=== PATIENT | male | born 1955 | race Two or more races ===

== ENCOUNTER 2024-05-25 13:35 | Inpatient (IN) | payer MEDICAID, SELFPAY ==
[2024-05-25] VITALS (11 sets, daily range): BP systolic 122–153; BP diastolic 71–88; PULSE 59–114; RESP 17–95; TEMP 37.2–38.9; O2SAT 92–96; BMI 31.9
--- NOTE | 2024-05-25 14:05 | XR_ITS ---
Examination: AP lateral chest 2 views Technique: Sitting AP lateral chest 2 views Exam date and time: May 25, 2024 at 1419 hrs. Comparison September 24, 2020 Indications: Coughing 3 days, history cavitary lesion left upper lobe on chest Second 2020 Findings: Significant left lung pneumonia Mild right perihilar pneumonia Cavitary lesion left upper lobe is again identified at least 38 mm in dimension Normal heart size Impression: Significant left lung pneumonia with cavitary lesions as above
--- NOTE | 2024-05-25 14:05 | EKG_ITS ---
[facility] Test Date: 2024-05-25 Pat Name: HIMA KAUR Department: Room: - Gender: Male Senior Staff Consultant: : [id number] Requested By: Emiliano Guadalupe Order Number: [id number] Reading MD: Emiliano Guadalupe Measurements Intervals [place] Rate: 106 P: 22 LA: 158 QRS: 32 QRSD: 100 T: 36 QT: 305 QTc: 407 Interpretive Statements SINUS TACHYCARDIA INDETERMINATE AXIS ABNORMAL RHYTHM ECG Compared to ECG 09/24/2020 14:50:48 Indeterminate axis now present Sinus rhythm no longer present /store/S0/[id number].pdf
--- NOTE | 2024-05-25 14:06 | PD.EDRME ---
Rapid Medical Screening Exam RME Arrival date/time: 05/25/24 13:35 68 year old male present to Ed for c/o of cough, fever for 3 days. I have greeted and performed a focused initial assessment of this patient. A comprehensive ED assessment and evaluation of the patient, analysis of all test results, and completion of the medical decision making process will be conducted by additional ED providers. Chief Complaint: Flu Like Symptoms Time Seen by Provider: 05/25/24 13:51 Vital signs: Vital Signs Temperature 102.1 F H 05/25/24 13:59 Pulse Rate 114 H 05/25/24 13:59 Respiratory Rate 20 05/25/24 13:59 Blood Pressure 148/88 H 05/25/24 13:59 Pulse Oximetry (%) 95 05/25/24 13:59 Oxygen Delivery Method Room Air 05/25/24 13:59
[2024-05-25] MEDS: ACETAMINOPHEN 500 MG TABLET 1000 MG PO (14:21)
[2024-05-25 14:35] LABS: Lactate (Lactic Acid) 2.7 mMol/L (0.4-2.0)
[2024-05-25 14:36] LABS: Basophils # (Auto) 0.1 Thou/mm3 (0.0-0.2); Basophils % (Auto) 0 % (0-2.5); Eosinophils % (Auto) 0 % (0-10); Hemoglobin 13.6 g/dL (13.5-16.0); Immature Granulocytes % (Auto) 1 % (0-0); Immature Granulocytes Auto 0.09 Thou/mm3 (0.00-0.00); Lymphocytes # (Auto) 2.1 Thou/mm3 (1.0-4.8); Lymphocytes % (Auto) 13 % (10-50); Mean Corpuscular HGB Conc 33.2 g/dl (31.0-37.0); Mean Corpuscular Hemoglobin 30.3 pg (25.0-35.0); Mean Corpuscular Volume 91 fL (80-100); Monocytes # (Auto) 1.3 Thou/mm3 (0.0-0.8); Monocytes % (Auto) 8 % (0-12); Neutrophils # (Auto) 12.1 Thou/mm3 (1.8-7.7); Neutrophils % (Auto) 77 % (37-80); Nucleated Red Blood Cell % 0 /100 WBC (0); Platelet Count 237 Thou/mm3 (140-440); RDW Standard Deviation 43.8 fL (35.1-43.9); Red Blood Count 4.49 Miln/mm3 (4.50-5.90); White Blood Count 15.7 Thou/mm3 (3.8-10.6)
[2024-05-25 14:52] LABS: B-Type Natriuretic Peptide < 20 pg/mL (0-100)
[2024-05-25 15:02] LABS: Alanine Aminotransferase 33 U/L (10-49); Albumin, Serum 4.5 gm/dL (3.4-4.8); Albumin/Globulin Ratio 1.2 (1.2-2.2); Alkaline Phosphatase 115 U/L (46-116); Anion Gap 10 (7-16); Aspartate Amino Transferase 32 U/L (0-34); BUN/Creatinine Ratio 16 Ratio (12-20); Bilirubin,Total 0.4 mg/dL (0.3-1.2); Blood Urea Nitrogen 19 mg/dL (9-23); Calcium 9.6 mg/dL (8.3-10.6); Calcium (Corrected) 9.6 mg/dL (8.5-10.1); Carbon Dioxide 26.8 mMol/L (20.0-31.0); Chloride 102 mMol/L (98-107); Creatinine (Component) 1.2 mg/dL (0.6-1.3); Estimated Creatinine Clearance 58.9 mL/min (>60); Globulin 3.9 gm/dL (2.3-3.5); Glucose 153 mg/dL (74-106); LDH (Lactate Dehydrogenase) 364 U/L (120-246); Lipase 44 U/L (12-53); Magnesium 1.8 mg/dL (1.6-2.6); Osmolality,Calculated 282 (275-295); Phosphorous 2.4 mg/dL (2.4-5.1); Potassium 4.7 mMol/L (3.4-5.1); Procalcitonin 0.19 ng/ml (0.0-0.49); Sodium 139 mMol/L (136-145); Total Protein 8.4 gm/dL (5.7-8.2); Troponin I < 0.020 ng/mL (0.0-0.045); eGFR > 60 See Note
[2024-05-25 15:19] LABS: INR 1.1 (0.9-1.3); Prothrombin Time 11.9 Seconds (9.0-12.2)
[2024-05-25 15:21] LABS: Collection Type, Urine Clean Catch
[2024-05-25 15:45] LABS: Bilirubin,Urine Negative (Negative); Blood,Urine 2+ (Negative); Clarity,Urine Clear (Clear/Hazy); Color,Urine Lt-Yellow (Lt Yel-Yel); Glucose, Urine Negative (Negative); Ketones,Urine Negative (Negative); Leukocyte Esterase,Urine Negative (Negative); Nitrite,Urine Negative (Negative); Protein,Urine 3+ (Neg - Trace); RBC,Urine 5 /hpf (0-3); Specific Gravity,Urine 1.021 (1.001-1.035); Squamous Epithelial Cell,Urine 1 /hpf (0-5); Urobilinogen,Urine Negative mg/dL (0.0-1.0); WBC,Urine 1 /hpf (0-5)
--- NOTE | 2024-05-25 16:39 | EDNOTE_ITS ---
ED General RME/HPI General Chief complaint: Flu Like Symptoms Stated complaint: COUGHING UP BLOOD TINGED PHLEGM SINCE SUNDAY MN Time Seen by Provider: 05/25/24 13:51 Arrival date/time: 05/25/24 13:35 RME / HPI RME / HPI narrative: 05/25/24 13:35 68 year old male present to Ed for c/o of cough, fever for 3 days. I have greeted and performed a focused initial assessment of this patient. A comprehensive ED assessment and evaluation of the patient, analysis of all test results, and completion of the medical decision making process will be conducted by additional ED providers. DR. RICHMOND MAIN ED EVALUATION: 68 year old male presents to the Emergency Department accompanied by the daughter with complaint of gross hemoptysis, one episode per day for the last 3 days. He states he feels something in his throat and tries to clear it up and it comes out as blood. He states it is at least a handful of bright red blood with some phlegm, maybe more. Symptoms are severe. Associated symptoms include fever of 102 F here and sore throat. 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 Recently, his PCP did somewhat of a physical exam on 05/03/24 and was checking if he still has Valley Fever if not to discontinue treatment, no symptoms at that time. Patient denies any abdominal pain, constipation, black stools, rectal bleeding, or any other symptoms at this time. Last bowel movement was today at like 2 PM, normal yellowish bowels for the patient. Related Data Home Medications ?Medication ?Instructions ?Recorded ?Confirmed folic acid 1 mg tablet 1 mg PO DAILY 08/22/2005/26 cholecalciferol (vitamin D3) 125 125 mcg PO QDAY 08/2409/15/20 mcg (5,000 unit) tablet (Vitamin D3) cyanocobalamin (vitamin B-12) 1,000 mcg PO QDAY 09/15/20 1,000 mcg capsule mirtazapine 30 mg tablet 30 mg PO HS 09/21/20 1 fluconazole 200 mg tablet 200 mg PO Q24H 05/26/2406/17 lisinopril 2.5 mg tablet 2.5 mg PO DAILY 05/26/2406/17 losartan 50 mg-hydrochlorothiazide 1 tab PO DAILY 06/1705/26/24 12.5 mg tablet sitagliptin phosphate 50 1 tab PO BID 05/26/24 mg-metformin 1,000 mg tablet (Lissa) Previous Rx's ?Medication ?Instructions ?Recorded acetaminophen 325 mg/10.15 mL oral 650 mg (20.3 mL) fe eding tube Q6HR 10/05/20 solution PRN Pain Or Fever > 101 #1,0 15 mL bisacodyl 10 mg rectal suppository 10 mg DE QDAY PRN C onstipation #12 10/05/20 ea loratadine 5 mg/5 mL oral solution 10 mg (10 mL) feedi ng tube QDAY 10/05/20 PRN Allergy Symptoms #120 mL Allergies Allergy/AdvReac Type Severity Reaction Status Date / Time No Known Allergies Allergy Verified 05/25/24 13:38 Review of Systems Review of Systems Systems Reviewed: All systems reviewed, normal except as documented Narrative Review of Systems: GEN: + fever, no chills, no weight loss EYES: No discharge, no visual changes, no pain HEENT: No ear pain, no congestion, + sore throat PULM: No shortness of breath, + gross hemoptysis (see HPI) CV: No chest pain, no dyspnea on exertion, no palpitations GI: No nausea, no vomiting, no diarrhea, no pain, no constipation : No frequency, no urgency and no dysuria MUSC/SKEL: No joint pain, no back pain SKIN: No rash PSYCH: No hallucinations, no depression HEME/LYMPH: No easy bleeding or bruising tendencies NEURO: No weakness, no headache Past Medical History Past Medical History NEUROLOGIC: Positive Dementia and Alzheimer's Disease GASTROINTESTINAL: Positive Gastrointestinal Disorders and Hiatal Hernia ENDOCRINE: Positive Diabetes Mellitus Type 2 PSYCHO/SOCIAL: Positive Depression and Anxiety Social History SMOKING STATUS: Former smoker SECOND HAND EXPOSURE: No SUBSTANCE USE: does not use ALCOHOL: Never ED Exam Narrative Physical exam: GENERAL APPEARANCE: AxOx4, generally well-appearing, no acute distress. HEENT: NC, AT. MMM. EOMI, clear conjunctiva, oropharynx clear. NECK: Supple without lymphadenopathy. No stiffness or restricted ROM. HEART: Normal rate and regular rhythm, normal S1/S1, no m/r/g LUNGS: CTAB, moving air well. No crackles or wheezes are heard. ABDOMEN: Soft, nontender, nondistended with good bowel sounds heard. BACK: No midline C/T/L spine pain or deformity, No CVAT, no obvious deformity. EXTREMITIES: Without cyanosis, clubbing or edema. MUSCULOSKELETAL: FROM of all major joints, no chest tenderness NEUROLOGICAL: Grossly nonfocal. Alert and oriented, moving all 4 extremities. CN not formally tested but appear grossly intact. Observed to ambulate with normal gait. Skin: Warm and dry without any rash. Course Course Course Narrative: 1800: Patient was signed out to Dr. Diallo. Past medical, surgical, social and family history reviewed. Vitals and home medications reviewed. Results and treatment plan discussed. They will assume the care of the patient at this time and will follow the patient, pending chest CTA and final disposition. Quality Measures none Orders Category Date Time Status Bedside Influenza A&B Antigen Test NOW Care 05/25/24 14:[address] Screening NOW Care 05/25/24 18:04 Active Pressure Welder STAT Care 05/25/24 14:05 Active Continuous Pulse Oximetry STAT Care 05/25/24 14:05 Completed EKG (ED ONLY) *Do not use* NOW Care 05/25/24 14:05 Completed In and Out Catheter X1PRN Care 05/25/24 14:05 Completed Insert IV NOW Care 05/25/24 14:05 Active NPO STAT Care 05/25/24 14:05 Active Strict Intake and Output Routine Care 05/25/24 14:[address] angio chest Stat Exams 05/25/24 18:04 Completed EKG (ED Only) Stat Exams 05/25/24 14:05 Draft XR chest 2V Stat Exams 05/25/24 14:05 Completed B-Type Natriuretic Peptide Stat Lab 05/25/24 14:20 Completed Blood Culture (Lab) Stat Lab 05/25/24 14:15 Results CBC Stat Lab 05/25/24 14:20 Completed Comprehensive Metabolic Panel Stat Lab 05/25/24 14:20 Completed LDH (Lactate Dehydrogenase) Stat Lab 05/25/24 14:20 Completed Lactate (Lactic Acid) Stat Lab 05/25/24 14:20 Completed Lactic Acid, 3 HR Stat Lab 05/25/24 17:59 Completed Lipase Stat Lab 05/25/24 14:20 Completed Magnesium Stat Lab 05/25/24 14:20 Completed Partial Thromboplastin Time Stat Lab 05/25/24 14:20 Completed Phosphorous Stat Lab 05/25/24 14:20 Completed Procalcitonin Stat Lab 05/25/24 14:20 Completed Prothrombin Time with INR Stat Lab 05/25/24 14:20 Completed Troponin I Stat Lab 05/25/24 14:20 Completed Urinalysis Stat Lab 05/25/24 15:13 Completed Urine Culture Stat Lab 05/25/24 15:13 Received Acetaminophen Tab [Tylenol ES Tab] Med 05/25/24 14:06 Discontinued 1,000 mg PO X1 ONE Cefepime Inj [Maxipime Inj] 1 gm Med 05/25/24 21:03 Discontinued SODIUM CHLORIDE 0.9% (Popper) [Ns 0.9% (P)] 50 ml IV X1 Oxygen Delivery NOW RT 05/25/24 14:05 Active Vital Signs Vital signs: Vital Signs Temperature 102.1 F H 05/25/24 13:59 Pulse Rate 114 H 05/25/24 13:59 Respiratory Rate 20 05/25/24 13:59 Blood Pressure 148/88 H 05/25/24 13:59 Pulse Oximetry (%) 95 05/25/24 13:59 Oxygen Delivery Method Room Air 05/25/24 13:59 Procedures -ED EKG Interpretation #1: Date of EK05/25/24 Time of EK:18 Rate: 106 Interpretation: Interpreted by me Additional EKG comment: sinus tachycardia, rate 106, no STEMI MDM Patient data External records reviewed:: [facility] previous records (Reviewed Gastroenterology note by Dr. Dsouza dated 10/05/20.) Clinical information provided by:: patient and family (daughter) Social determinants that could affect healthcare access:: none Patient has the following chronic illnesses:: Valley Fever diagnosed in 2019. How is presenting disease/condition affected by chronic disease/condition?: e xacerbated by Evaluation data The following diagnostics were reviewed and interpreted by me:: lab results, radiology exam(s) and EKG tracing(s) Lab and/or radiology exams considered but not ordered:: none Interpretation Summary: Pending diagnostic test, signed out to rn night provider. Medications Medications considered but not ordered:: none Medication administrations:: Medication Administration History Acetaminophen (Acetaminophen 325 Mg Tablet) 650 mg PO Q6H PRN PRN Reason: Fever >101.5 Stop: 06/24/24 21:51 Acetaminophen (Acetaminophen 325 Mg Tablet) 650 mg PO Q6H PRN PRN Reason: PAIN SCALE 1-3 (mild Stop: 06/24/24 21:51 Hydrocodone Bitart/Acetaminophen (Hydrocodone/Apap 5/325 Tablet) 1 tab PO Q4HR PRN PRN Reason: PAIN SCALE 4-6 (Moderate Stop: 05/30/24 21:51 Albuterol (Albuterol Rt 2.5 Mg/0.5 Ml Nebu) 2.5 mg INH Q2HR PRN PRN Reason: SHORTNESS OF BREATH OR WHEEZE Stop: 06/24/24 21:51 Dextrose (Dextrose 50%-Water Inj 50 Ml Syringe) 25 ml IV Q15MIN PRN PRN Reason: BG 50-70 responsive npo pt Stop: 06/24/24 22:06 Dextrose (Dextrose 50%-Water Inj 50 Ml Syringe) 50 ml IV Q15MIN PRN PRN Reason: BG <50 OR BG <70 & pt unresponsive Stop: 06/24/24 22:06 Fluconazole (Fluconazole 100 Mg Tablet) 400 mg PO QDAY [facility] Stop: 06/02/24 08:59 Last Admin: 05/26/24 08:50 Dose: 400 mg Documented By: CARLOTTA Glucagon (Glucagon Inj 1 Mg Vial) 1 mg IM Q15MIN PRN PRN Reason: BG <70, and no IV access Hydralazine HCl (Hydralazine Inj 20 Mg/Ml Vial) 10 mg IV Q2H PRN PRN Reason: SBP >180 Stop: 06/24/24 22:10 Ceftriaxone Sodium 1,000 mg/ (Sodium Chloride) 50 mls @ 100 mls/hr IV QDAY [facility] Stop: 06/07/24 11:59 Insulin Glargine (Insulin Glargine (Lantus) 5 Unit/0.05 Ml (Per 5 Units)) 5 unit SC QDAY [facility] Stop: 06/25/24 08:59 Last Admin: 05/26/24 08:32 Dose: Not Given Documented By: CARLOTTA Non-Admin Reason: NPO Insulin Human Lispro (Insulin Lispro (Admelog) 1 Unit/0.01 Ml Unit) 0 unit SC ACHS [facility]; Protocol Stop: 06/25/24 00:00 Last Admin: 05/26/24 16:58 Dose: 1 unit Documented By: CARLOTTA Co-signed By: MGD Ondansetron HCl (Ondansetron Inj 2 Mg/Ml Inj 2 Ml) 4 mg IV Q6H PRN; Protocol PRN Reason: NAUSEA OR VOMITING Stop: 06/24/24 21:51 Pantoprazole Sodium (Pantoprazole Inj 40 Mg Vial) 40 mg IVP QDAY [facility] Stop: 06/26/24 08:59 Sennosides (Senna Tablet) 1 tab PO BID PRN; Protocol PRN Reason: CONSTIPATION Stop: 06/24/24 21:51 Sodium Chloride (Sodium Chloride Rt Nila 0.9% 3 Ml Nebu) 3 ml INH PRN PRN PRN Reason: SOLN Stop: 06/24/24 21:51 Discontinued Medications Acetaminophen (Acetaminophen 500 Mg Tablet) 1,000 mg PO X1 ONE Stop: 05/25/24 14:07 Last Admin: 05/25/24 14:21 Dose: 1,000 mg Documented By: MARNI Cefepime HCl 1 gm/ Sodium (Chloride) 50 mls @ 100 mls/hr IV X1 ONE Stop: 05/25/24 21:32 Last Admin: 05/25/24 21:21 Dose: 100 mls/hr Documented By: CHERYL Sodium Chloride (Ns) 500 mls @ 999 mls/hr IV .Q31M ONE Stop: 05/25/24 22:22 Last Admin: 05/25/24 22:44 Dose: 999 mls/hr Documented By: CHERYL Cefepime HCl 2 gm/ Sodium (Chloride) 50 mls @ 100 mls/hr IV Q6HR [facility] Stop: 06/02/24 00:00 Vancomycin HCl 2,000 mg/ (Sodium Chloride) 500 mls @ 150 mls/hr IV X1 ONE Stop: 05/26/24 01:49 Last Admin: 05/25/24 22:44 Dose: 150 mls/hr Documented By: CHERYL Cefepime HCl 2 gm/ Sodium (Chloride) 50 mls @ 100 mls/hr IV Q12HR [facility] Stop: 06/02/24 08:59 Last Admin: 05/26/24 08:51 Dose: 100 mls/hr Documented By: CARLOTTA Magnesium Sulfate (Magnesium Sulfate Ivpb) 2 gm in 50 mls @ 25 mls/hr IV X1 ONE Stop: 05/26/24 04:54 Last Admin: 05/26/24 03:09 Dose: 25 mls/hr Documented By: PURVI Vancomycin/Sodium Chloride (Vancomycin/Ns 750 Mg Ivpb) 750 mg in 150 mls @ 120 mls/hr IV BID@1000,2200 [facility]; Protocol Stop: 06/02/24 09:59 Last Admin: 05/26/24 09:32 Dose: 120 mls/hr Documented By: CARLOTTA Insulin Human Lispro (Insulin Lispro (Admelog) 1 Unit/0.01 Ml Unit) 0 unit SC Q6HR [facility]; Protocol Stop: 06/25/24 00:00 Last Admin: 05/26/24 11:54 Dose: Not Given Documented By: CARLOTTA Non-Admin Reason: Per Protocol Admin: 05/26/24 05:14 Dose: Not Given Documented By: PURVI Non-Admin Reason: Per Protocol Admin: 05/26/24 01:04 Dose: Not Given Documented By: PURVI Non-Admin Reason: Per Protocol Pantoprazole Sodium (Pantoprazole Inj 40 Mg Vial) 40 mg IVP Q12HR [facility] Stop: 06/25/24 08:59 Last Admin: 05/26/24 08:50 Dose: 40 mg Documented By: CARLOTTA Pharmacy Consult (Vancomycin Pharmacy To Dose 1 Each Each) 1 each IV QDAY PRN PRN Reason: PROTOCOL Stop: 06/25/24 08:59 Sodium Chloride (Sodium Chloride Rt 10% 15 Ml Nebu) 5 ml INH X1 ONE Stop: 05/26/24 10:13 see above Consultations Consultation(s) initiated? (list below): No Diagnosis Differential Diagnosis ED Complaint MDM: Valley Fever, tuberculosis, pulmonary mass, pulmonary embolism Most likely diagnosis given after review of the tests above:: No official diagnoses at this time, still pending diagnostic tests. Patient signout to the rn night provider. Admission Indicated Admission indicated?: not indicated Explain why admission is indicated or not indicated:: No final disposition plan at this time, still pending diagnostic tests. Patient signout to the rn night provider. Admission Request Was there a request for admission?: No Disposition Plan Disposition Plan: other (specify) (Patient signout to the rn night provider. ) Medical Decision Making MDM Narrative MDM Narrative: Maria Elena Carter, am scribing for and in the presence of Dr. Richmond. Differential Diagnosis Differential Diagnosis: Valley Fever, tuberculosis, pulmonary mass, pulmonary embolism Lab Data 05/26/24 05:42 05/26/24 05:42 Labs: Lab Results 05/25/24 05/25/24 05/25/24 Range/Units 14:20 15:13 17:59 WBC 15.7 H (3.8-10.6) Thou/mm3 RBC 4.49 L (4.50-5.90) Miln/mm3 Hgb 13.6 (13.5-16.0) g/dL Hct 41.0 (41.0-53.0) % MCV 91 (80-100) fL MCH 30.3 (25.0-35.0) pg MCHC 33.2 (31.0-37.0) g/dl RDW Std Deviation 43.8 (35.1-43.9) fL Plt Count 237 (140-440) Thou/mm3 Neut % (Auto) 77 (37-80) % Lymph % (Auto) 13 (10-50) % [place] % (Auto) 8 (0-12) % Eos % (Auto) 0 (0-10) % Baso % (Auto) 0 (0-2.5) % Neut # (Auto) 12.1 H (1.8-7.7) Thou/mm3 Lymph # (Auto) 2.1 (1.0-4.8) Thou/mm3 [place] # (Auto) 1.3 H (0.0-0.8) Thou/mm3 Eos # (Auto) 0.0 (0.0-0.5) Thou/mm3 Baso # (Auto) 0.1 (0.0-0.2) Thou/mm3 Immature Gran # (Auto) 0.09 H (0.00-0.00) Thou/mm3 Absolute Nucleated RBC 0.00 (0.00-0.00) Thou/mm3 Immature Gran % 1 H (0-0) % Nucleated RBC % 0 (0) /100 WBC PT 11.9 (9.0-12.2) Seconds INR 1.1 (0.9-1.3) APTT 20.0 L (22.0-36.0) Seconds Sodium 139 (136-145) mMol/L Potassium 4.7 (3.4-5.1) mMol/L Chloride 102 (98-107) mMol/L Carbon Dioxide 26.8 (20.0-31.0) mMol/L Anion Gap 10 (7-16) BUN 19 (9-23) mg/dL Creatinine 1.2 (0.6-1.3) mg/dL Estim Creat Clear Calc 58.9 L (>60) mL/min eGFR > 60 (60 - ) See Note BUN/Creatinine Ratio 16 (12-20) Ratio Glucose 153 H (74-106) mg/dL Calculated Osmolality 282 (275-295) Lactic Acid 2.7 H 1.2 (0.4-2.0) mMol/L Calcium 9.6 (8.3-10.6) mg/dL Corrected Calcium 9.6 (8.5-10.1) mg/dL Phosphorus 2.4 (2.4-5.1) mg/dL Magnesium 1.8 (1.6-2.6) mg/dL Total Bilirubin 0.4 (0.3-1.2) mg/dL AST 32 (0-34) U/L ALT 33 (10-49) U/L Alkaline Phosphatase 115 (46-116) U/L Lactate Dehydrogenase 364 H (120-246) U/L Troponin I < 0.020 (0.0-0.045) ng/mL B-Natriuretic Peptide < 20 (0-100) pg/mL Total Protein 8.4 H (5.7-8.2) gm/dL Albumin 4.5 (3.4-4.8) gm/dL Globulin 3.9 H (2.3-3.5) gm/dL Albumin/Globulin Ratio 1.2 (1.2-2.2) Lipase 44 (12-53) U/L Procalcitonin 0.19 (0.0-0.49) ng/ml Ur Collection Type Clean Catch Urine Color Lt-Yellow (Lt Yel-Yel) Urine Clarity Clear (Clear/Hazy) Urine pH 6.0 (5.0-7.0) Ur Specific [place] 1.021 (1.001-1.035) Urine Protein 3+ A (Neg - Trace) Urine Glucose (UA) Negative (Negative) Urine Ketones Negative (Negative) Urine Blood 2+ A (Negative) Urine Nitrite Negative (Negative) Urine Bilirubin Negative (Negative) Urine Urobilinogen (Auto) Negative (0.0-1.0) mg/dL Ur Leukocyte Esterase Negative (Negative) Urine RBC 5 H (0-3) /hpf Urine WBC 1 (0-5) /hpf Ur Squamous Epith Cells 1 (0-5) /hpf Urine Bacteria None (None) Discharge Plan Plan Patient Disposition: Admit Acute Care w/in Hospital Problem List Clinical Impression: Sepsis, Hemoptysis, Pulmonary cavitary lesion
[2024-05-25 17:32] LABS: Reflex Lactate? Y
--- NOTE | 2024-05-25 17:41 | PD.EDADDENDU ---
Emergency Room Addendum <Maria Elena Lopez - Last Filed: 05/26/24 14:14> Addendum Narrative: 1800: Care assumed from Dr. Garay, the previous shift emergency physician. Past medical, surgical, social and family history reviewed. Vitals and home medications reviewed. I will assume the care of the patient at this time, pending chest CTA and final disposition. Please refer to the emergency department record for history and examination from initial visit.? Physical exam by me shows patient under no acute distress at this time. 19:10 took over care of the patient from Dr. Do. Patient is a 68-year-old male who presented to the emergency department with hemoptysis, known valley fever, patient was febrile and a sepsis alert was called. Patient also has known meningitis. He is currently being treated for that. We are pending a CTA chest and will reevaluate. 20:58 CTA chest shows a left upper lobe cavitary lesion which is the most likely etiology of his hemoptysis. Patient has a history of valley fever, please see complete history by Dr. Garay. I called and spoke with Dr. Vazquez who is the resident working with Dr Feng (hospitalist on duty). We discussed patient's case in detail. He asked that we give cefepime for hospital-acquired pneumonia and we will do that as patient has received no antibiotics yet. Patient is resting comfortably in the exam room. 2152: Discussed test HPI, PMHx, lab, radiology results and/or management with Dr. Vazquez who is the resident working with Dr Feng (hospitalist on duty). Will admit for further evaluation and management. Accepts patient for admission. Diagnoses include sepsis, hemoptysis, and pulmonary cavitary lesion. RADIOLOGY Procedure(s): CT angio chest Accession Number(s): [id number] cc: Rai Garay MD; Rickey Alicea MD; Gilberto,Xu E TODDLER NANNY~ Examination: CTA chest with intravenous contrast 2-D reconstructions 3-D reconstructions, vascular Date and time of exam: May 25, 2024 1851 hrs. Comparison September 15, 2020 Indications: Onset hemoptysis beginning 2 days ago CTDI: vol (mGy) 20.5 DLP: (mGycm) 463 Technique: Multiple axial sections of the thorax have been obtained. 3 mm slice thickness, from below the hemidiaphragms to above the apices of the lungs. Mediastinal and lung density settings have been obtained. 2-D sagittal and coronal reconstructions. 3-D angiographic renderings, 3-D volume renderings, 3D post processing, vascular maximum intensity projections obtained. Contrast administered is 100 cc Isovue-370. Low dose protocols were performed. One or more of the following dose reduction techniques were used; automated exposure control, adjustment of the mA and/or KV according to patient size, use of iterative reconstruction technique. Findings: No thoracic aortic aneurysm dilatation or dissection Pulmonary artery segments are not enlarged No pulmonary artery filling defects Mild calcification left anterior descending coronary artery Partially cavitary mass in the left upper lobe, the largest component measuring 38 x 28 mm More subtle infiltrate in the lingular segment No visualized liver or splenic lesion Absent gallbladder No pancreatic or adrenal mass Kidneys partially visualized no hydronephrosis Significant osteopenia Impression: 38 x 28 mm partially cavitary mass in the left upper lobe, differential would include lung carcinoma as well as infectious mass Dictated By: Rickey Alicea MD <Aristeo Diallo MD - Last Filed: 05/25/24 21:06> Addendum Narrative: 1800: Care assumed from Dr. Garay, the previous shift emergency physician. Past medical, surgical, social and family history reviewed. Vitals and home medications reviewed. I will assume the care of the patient at this time, pending chest CTA and final disposition. Please refer to the emergency department record for history and examination from initial visit.? Physical exam by me shows patient under no acute distress at this time. 19:10 took over care of the patient from Dr. Do. Patient is a 68-year-old male who presented to the emergency department with hemoptysis, known valley fever, patient was febrile and a sepsis alert was called. Patient also has known meningitis. He is currently being treated for that. We are pending a CTA chest and will reevaluate 20:58 CTA chest shows a left upper lobe cavitary lesion which is the most likely etiology of his hemoptysis. Patient has a history of valley fever, please see complete history by Dr. Garay. I called and spoke with Dr. Vazquez who is the resident working with Dr Feng (hospitalist on duty). We discussed patient's case in detail. He asked that we give cefepime for hospital-acquired pneumonia and we will do that as patient has received no antibiotics yet. Patient is resting comfortably in the exam room. <Barbara Sauceda - Last Filed: 05/25/24 23:07> Addendum Narrative: 1800: Care assumed from Dr. Garay, the previous shift emergency physician. Past medical, surgical, social and family history reviewed. Vitals and home medications reviewed. I will assume the care of the patient at this time, pending chest CTA and final disposition. Please refer to the emergency department record for history and examination from initial visit.? Physical exam by me shows patient under no acute distress at this time. 19:10 took over care of the patient from Dr. Do. Patient is a 68-year-old male who presented to the emergency department with hemoptysis, known valley fever, patient was febrile and a sepsis alert was called. Patient also has known meningitis. He is currently being treated for that. We are pending a CTA chest and will reevaluate 20:58 CTA chest shows a left upper lobe cavitary lesion which is the most likely etiology of his hemoptysis. Patient has a history of valley fever, please see complete history by Dr. Garay. I called and spoke with Dr. Vazquez who is the resident working with Dr Feng (hospitalist on duty). We discussed patient's case in detail. He asked that we give cefepime for hospital-acquired pneumonia and we will do that as patient has received no antibiotics yet. Patient is resting comfortably in the exam room. Diagnoses include sepsis, hemoptysis, and pulmonary cavitary lesion.
--- NOTE | 2024-05-25 18:04 | XR_ITS ---
Examination: CTA chest with intravenous contrast 2-D reconstructions 3-D reconstructions, vascular Date and time of exam: May 25, 2024 1851 hrs. Comparison September 15, 2020 Indications: Onset hemoptysis beginning 2 days ago CTDI: vol (mGy) 20.5 DLP: (mGycm) 463 Technique: Multiple axial sections of the thorax have been obtained. 3 mm slice thickness, from below the hemidiaphragms to above the apices of the lungs. Mediastinal and lung density settings have been obtained. 2-D sagittal and coronal reconstructions. 3-D angiographic renderings, 3-D volume renderings, 3D post processing, vascular maximum intensity projections obtained. Contrast administered is 100 cc Isovue-370. Low dose protocols were performed. One or more of the following dose reduction techniques were used; automated exposure control, adjustment of the mA and/or KV according to patient size, use of iterative reconstruction technique. Findings: No thoracic aortic aneurysm dilatation or dissection Pulmonary artery segments are not enlarged No pulmonary artery filling defects Mild calcification left anterior descending coronary artery Partially cavitary mass in the left upper lobe, the largest component measuring 38 x 28 mm More subtle infiltrate in the lingular segment No visualized liver or splenic lesion Absent gallbladder No pancreatic or adrenal mass Kidneys partially visualized no hydronephrosis Significant osteopenia Impression: 38 x 28 mm partially cavitary mass in the left upper lobe, differential would include lung carcinoma as well as infectious mass
[2024-05-25 18:05] LABS: Lactic Acid, 3 HR 1.2 mMol/L (0.4-2.0)
--- NOTE | 2024-05-25 18:44 | PC.NURSE ---
Pt. here from home to room 18, pt.'s daughter is bedside, pt.'s daughter states pt. vomited blood Yousuf and again this morning. Pt. denies cough, night sweats, nausea. Daughter states pt. just got out of the jail on 04/29/24, daughter states pt. had [place] Fever and wasn't eating. Pt. states he used to have a PEG tube. Daughter states pt. ambulates but is slow. No s/s of distress at this time.
[2024-05-25] MEDS: CEFEPIME INJ 1 GM in SODIUM CHLORIDE 0.9% (Popper) 50 ML IV (21:21)
--- NOTE | 2024-05-25 21:33 | PC.NURSE ---
Residents in room seeing pt, at bedside.
[2024-05-25] MEDS: SODIUM CHLORIDE 0.9% 500 ML 500 ML 999 ML IV (22:44)
[2024-05-25] MEDS: Vancomycin Inj 2,000 MG in SODIUM CHLORIDE 0.9% 500 ML 500 ML 150 MG IV (22:44)
--- NOTE | 2024-05-25 22:50 | ESHP_ITS ---
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 On questioning, the patient started to have cough and vomited moderate amount of blood On Sunday. They also reported that the patient became febrile at home and had runny nose. He denied any shortness of breath or chest pain. Denied any history of jaundice, or previous episodes of vomiting or coughing blood. Today similar episodes happened in which urged him to come to the ED. They mentioned that he does not have any chest pain, abdominal pain, and he does not have any change in color of his stool or fresh blood per rectum. Of note patient was [facility] in the beginning of April 2024 ED course: On presentation patient was noticed to be febrile with body temperature of 102.1, heart rate of 110, and blood pressure of 149/78, he was saturating 94% on room air. His labs showed WBC of 15, hemoglobin of 13, serum creatinine is 1.2 of note his serum creatinine in 2020 is 0.6, lactic acid on presentation was 2.7 however it went down to 1.7, Pro-Moncho 0.9, coagulation panel within normal limit. His chest x-ray showed cavitary lesion and pneumonic infiltration. In review of the patient's chart we noticed that in [address] scan of the chest showed 3.5 cm with a cavitary lesion most likely secondary to cocci and he was prescribed fluconazole since that time. Also noticed that he has previous Abdominal CT scan in 2020 which showed multiple cystic lesions of the liver. On repeat of CT scan today which showed that the cavitary lesion at this time has mass component however still similar in size associated with pneumonia. PMH: As above Social hx: Alcohol: Denied Tobacco: Denied denied Illicit drugs: Allergies: No known allergies Review of Systems Review of Systems Systems Reviewed: All systems reviewed, normal except as documented Exam Vital Signs Temp Pulse Resp BP Pulse Ox O2 Del Method 100 F 91 18 153/77 H 94 L Room Air 05/25/24 21:19 05/25/24 21:19 05/25/24 21:19 05/25/24 21:19 05/25/24 21:19 05/25/24 21:19 Narrative Exam GEN: AOx3, able to speak full sentences HEENT: NC/AC, oral mucosa moist, neck supple CVS: RRR, S1-S2 present, no murmurs appreciated RESP: CTAB GI: Epigastric scar from previous PEG tube was noted. Soft,non distended, non tender, NBS MSK: able to move all 4 limbs, +1 lower extremity edema on the right, trace lower limb edema on the left SKIN: warm and dry [employer]: CN II-XII and Sensation grossly intact. Results: Labs 05/25/24 14:20 05/25/24 14:20 Labs: Short CBC 05/25/24 Range/Units 14:20 WBC 15.7 H (3.8-10.6) Thou/mm3 Hgb 13.6 (13.5-16.0) g/dL Hct 41.0 (41.0-53.0) % Plt Count 237 (140-440) Thou/mm3 BMP 05/25/24 14:20 Sodium 139 Potassium 4.7 Chloride 102 Carbon Dioxide 26.8 BUN 19 Creatinine 1.2 Glucose 153 H Calcium 9.6 Cardiac Enzymes 05/25/24 Range/Units 14:20 Troponin I < 0.020 (0.0-0.045) ng/mL Liver Function 05/25/24 Range/Units 14:20 Total Bilirubin 0.4 (0.3-1.2) mg/dL AST 32 (0-34) U/L ALT 33 (10-49) U/L Alkaline Phosphatase 115 (46-116) U/L Albumin 4.5 (3.4-4.8) gm/dL Urine 05/25/24 Range/Units 15:13 Urine Color Lt-Yellow (Lt Yel-Yel) Urine Clarity Clear (Clear/Hazy) Urine pH 6.0 (5.0-7.0) Ur Specific [place] 1.021 (1.001-1.035) Urine Protein 3+ A (Neg - Trace) Urine Glucose (UA) Negative (Negative) Quality Measures Quality Measures none Advance care planning discussed with:: patient and spouse Medications Home Medications and Allergies Home Medications ?Medication ?Instructions ?Recorded ?Confirmed ?Type folic acid 1 mg tablet 1 mg PO DAILY 08/22/2009/21 History cholecalciferol (vitamin D3) 125 125 mcg PO QDAY 08/2409/15/20 History mcg (5,000 unit) tablet (Vitamin D3) cyanocobalamin (vitamin B-12) 1,000 mcg PO QDAY 09/15/20 History 1,000 mcg capsule mirtazapine 30 mg tablet 30 mg PO HS 09/21/20 1 History Allergies Allergy/AdvReac Type Severity Reaction Status Date / Time No Known Allergies Allergy Verified 05/25/24 13:38 Visit Medications Acetaminophen (Acetaminophen 325 Mg Tablet) 650 mg PO Q6H PRN PRN Reason: Fever >101.5 Stop: 06/24/24 21:51 Acetaminophen (Acetaminophen 325 Mg Tablet) 650 mg PO Q6H PRN PRN Reason: PAIN SCALE 1-3 (mild Stop: 06/24/24 21:51 Hydrocodone Bitart/Acetaminophen (Hydrocodone/Apap 5/325 Tablet) 1 tab PO Q4HR PRN PRN Reason: PAIN SCALE 4-6 (Moderate Stop: 05/30/24 21:51 Albuterol (Albuterol Rt 2.5 Mg/0.5 Ml Nebu) 2.5 mg INH Q2HR PRN PRN Reason: SHORTNESS OF BREATH OR WHEEZE Stop: 06/24/24 21:51 Dextrose (Dextrose 50%-Water Inj 50 Ml Syringe) 25 ml IV Q15MIN PRN PRN Reason: BG 50-70 responsive npo pt Stop: 06/24/24 22:06 Dextrose (Dextrose 50%-Water Inj 50 Ml Syringe) 50 ml IV Q15MIN PRN PRN Reason: BG <50 OR BG <70 & pt unresponsive Stop: 06/24/24 22:06 Glucagon (Glucagon Inj 1 Mg Vial) 1 mg IM Q15MIN PRN PRN Reason: BG <70, and no IV access Hydralazine HCl (Hydralazine Inj 20 Mg/Ml Vial) 10 mg IV Q2H PRN PRN Reason: SBP >180 Stop: 06/24/24 22:10 Cefepime HCl 2 gm/ Sodium (Chloride) 50 mls @ 100 mls/hr IV Q6HR PENG Stop: 06/02/24 00:00 Vancomycin HCl 2,000 mg/ (Sodium Chloride) 500 mls @ 150 mls/hr IV X1 ONE Stop: 05/26/24 01:49 Last Admin: 05/25/24 22:44 Dose: 150 mls/hr Insulin Glargine (Insulin Glargine (Lantus) 5 Unit/0.05 Ml (Per 5 Units)) 5 unit SC QDAY [facility] Stop: 06/25/24 08:59 Insulin Human Lispro (Insulin Lispro (Admelog) 1 Unit/0.01 Ml Unit) 0 unit SC Q6HR PENG; Protocol Stop: 06/25/24 00:00 Ondansetron HCl (Ondansetron Inj 2 Mg/Ml Inj 2 Ml) 4 mg IV Q6H PRN; Protocol PRN Reason: NAUSEA OR VOMITING Stop: 06/24/24 21:51 Pantoprazole Sodium (Pantoprazole Inj 40 Mg Vial) 40 mg IVP Q12HR [facility] Stop: 06/25/24 08:59 Pharmacy Consult (Vancomycin Pharmacy To Dose 1 Each Each) 1 each IV QDAY [facility] Stop: 06/25/24 08:59 Sennosides (Senna Tablet) 1 tab PO BID PRN; Protocol PRN Reason: CONSTIPATION Stop: 06/24/24 21:51 Sodium Chloride (Sodium Chloride Rt Nila 0.9% 3 Ml Nebu) 3 ml INH PRN PRN PRN Reason: SOLN Stop: 06/24/24 21:51 Discontinued Medications Acetaminophen (Acetaminophen 500 Mg Tablet) 1,000 mg PO X1 ONE Stop: 05/25/24 14:07 Last Admin: 05/25/24 14:21 Dose: 1,000 mg Cefepime HCl 1 gm/ Sodium (Chloride) 50 mls @ 100 mls/hr IV X1 ONE Stop: 05/25/24 21:32 Last Admin: 05/25/24 21:21 Dose: 100 mls/hr Sodium Chloride (Ns) 500 mls @ 999 mls/hr IV .Q31M ONE Stop: 05/25/24 22:22 Last Admin: 05/25/24 22:44 Dose: 999 mls/hr Assessment & Plan Plan Summary:A 68-year-old male patient with reportedly history of depression, dementia, diabetes mellitus, hypertension, pulmonary cocci with cavitary lesion, 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 Patient was admitted for hemoptysis/hematemesis workup. 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 patient was noticed to be febrile with body temperature of 102.1, heart rate of 110, and blood pressure of 149/78, he was saturating 94% on room air. His labs showed WBC of 15, hemoglobin of 13, serum creatinine is 1.2 of note his serum creatinine in 2020 is 0.6, lactic acid on presentation was 2.7 however it went down to 1.7, Pro-Moncho 0.9, COVID and influenza virus screening came back negative His chest x-ray showed cavitary lesion and pneumonic infiltration. In review of the patient's chart we noticed that in [address] scan of the chest showed 3.5 cm with a cavitary lesion most likely secondary to cocci and he was prescribed fluconazole since that time. Also noticed that he has previous Abdominal CT scan in 2020 which showed multiple cystic lesions of the liver. On repeat of CT scan today which showed that the cavitary lesion at this time has mass component however still similar in size associated with pneumonia. Review of his serology showed positive cocci IgG in 2019 Plan ? Admit patient to telemetry ? Isolation precautions ?Will give the patient 500 mL of IV fluid bolus for his sepsis, as the patient noticed to have lower extremity edema ? Follow-up on blood culture and urine culture results ? Start the patient on cefepime 2 g IV every 6 hours ? Start the patient on vancomycin pharmacy to dose IV ? Send the patient for MRSA screening ? Consider consulting pulmonology rule out pulmonary cavitary lesion malignancy conversion ? Legionella screening antigen ? QuantiFERON to rule out superimposed TB infection, consider sending AFP if high suspicion of TB ? Aspiration precautions ? HOB 30 degree #Questionable hematemesis #History of cystic lesions of the liver on previous Family provided complex history mentioned that the patient started to cough and then vomited and coughed blood. They denied any history of liver disease in the past, denied any change of color of the stool and denied any history of liver disease. Previous CT scan showed multiple cystic lesions of the liver in 2020. At this time he is hemodynamically stable. Will continue to monitor his CBC regularly Plan ? Daily CBC ? Start the patient on pantoprazole 40 mg IV twice daily ? GI consultation to Dr. Dsouza ? Stool occult blood to rule out GIB ? Abdominal ultrasound #LISE most likely prerenal Patient on presentation was septic, lactic acid was 2.7, his serum creatinine last was in 2020 and it was 0.6. Most likely the patient has prerenal LISE secondary to decreased oral intake and vomiting versus renal cause secondary to sepsis Plan ? Continue to monitor kidney function daily ? Avoid nephrotoxic medications ? Will give the patient bolus 500 mL of NS challenge as the patient noted to have lower extremity edema, recheck in a.m. BMP and repeat bolus if needed #Right leg DVT rule out On examination patient was noticed to have right lower extremity edema +1 to +2 however trace edema on the left leg. His BNP is 20 and he has no history of heart failure. Plan ? Doppler venous ultrasound for the right lower extremity #History of diabetes mellitus Is on Janumet and insulin Lantus Plan ? A1c level ? Put the patient on insulin sliding scale ? Hypoglycemia protocol in place History of hypertension Apparently the patient is taking losartan and lisinopril at the same time Plan ? Medications reconciliation ? Hold home antihypertensive medication ? Start the patient on hydralazine as needed 10 mg every 2 hours if SBP more than 180 #History of dementia #History of depression Plan ? Resume home medications after med reconciliation Hospital Maintenance: FEN: Keep the patient n.p.o. DVT ppx: SCDs avoid chemical blood thinners GI ppx: Protonix IV lines: PIV Frost: None Code status: Full code Dispo: Tele - Patient's plan and care discussed with my attending, Dr. Jung Vazquez MD Internal Medicine PGY-2 Attending Provider Attestation/Addendum I attest that I was physically present for the evaluation, physical examination, lab and imaging review of the patient with the residents. I discussed the case with the residents and agree with the findings and plans of care as documented above. 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 Patient and family were unclear, if the blood is hemoptysis or hematemesis. As per him and at bedside, patient started having cough followed by vomiting with moderate to large amount of bright red blood. In the ED, patient was found to be febrile with temperature of 102.1, had a heart rate of 110, blood pressure 149/78, WBC 15, hemoglobin 13, creatinine 1.2, lactic acid 2.7 and procalcitonin 0.9. Chest x-ray showed cavitary lesion and pneumonic infiltration. Chest CTA was done, which also showed 38 x 28 mm partially cavitary mass in left upper lobe. Patient also had cavitary lesion on CT imaging from 2020 and 2019. We will admit the patient for management of sepsis secondary to pneumonia/infected cavitary lesion. We will start him on IV vancomycin and cefepime. Unable to give 30 cc/kg fluid, patient noted to have lower extremity edema. Cultures obtained. We will also obtain TB QuantiFERON, AFB, Legionella to evaluate further for episode of possible hemoptysis. Given cavitary lesion, cough, fever, hemoptysis more likely compared to hematemesis but we will obtain stool occult blood, GI consult, start 5 send on pantoprazole until we rule out GI bleeding. We will only do gentle IV hydration with 500 cc normal saline for LISE. Patient noted to have right lower extremity edema more so than the left, we will obtain a Doppler ultrasound to rule out DVT. We will also start him on insulin regimen for diabetes Bronson Feng MD
[2024-05-26] VITALS (12 sets, daily range): BP systolic 116–142; BP diastolic 64–83; PULSE 79–97; RESP 16–92; TEMP 36.2–36.9; O2SAT 95–97; BMI 31.9
--- NOTE | 2024-05-26 01:09 | XR_ITS ---
Examination: Abdomen sonogram, complete Date and time of exam: May 26, 2024 0132 hrs. Indications: Onset vomiting beginning 2 days ago. Technique: Multiple real-time grayscale transabdominal sonographic images of the abdomen have been obtained. Findings: Absent gallbladder Common bile duct 0.3 cm Pancreas obscured by bowel gas Aorta not enlarged Liver 17.9 cm 11 mm liver cyst fatty infiltration Normal hepatopedal portal venous flow Patent IVC Right kidney 11.8 cm renal cortex 1.3 cm 23 mm upper pole cyst Left kidney 11.0 cm cortex 1.2 cm Spleen 8.8 cm Impression: Absent gallbladder Normal common bile duct Mild hepatomegaly fatty liver
--- NOTE | 2024-05-26 01:09 | XR_ITS ---
Examination: Duplex scan of the lower extremity, unilateral right complete Date and time of exam: April 28, 2024 0156 hrs. Indications: Right leg swelling beginning 2 weeks ago Technique: Duplex scan of the extremity veins using B-mode/grayscale imaging and Doppler spectral analysis and color flow Attention is directed to internal echogenicity, compression and augmentation involving these veins, color flow assessment, spectral analysis Findings: Major deep venous structures in the extremity demonstrate normal course and caliber. There is no evidence of deep vein thrombosis. Normal color flow and spectral analysis Impression: Negative for DVT..
--- NOTE | 2024-05-26 02:21 | EKG_ITS ---
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
[2024-05-26] MEDS: Magnesium Sulfate 2 GM Ivpb 2 GM/50 ML BAG IV (03:09)
[2024-05-26 05:57] LABS: Quantiferon-TB* See Sep Rpt
[2024-05-26 06:00] LABS: Basophils # (Auto) 0.1 Thou/mm3 (0.0-0.2); Basophils % (Auto) 0 % (0-2.5); Eosinophils # (Auto) 0.2 Thou/mm3 (0.0-0.5); Eosinophils % (Auto) 1 % (0-10); Hematocrit 35.6 % (41.0-53.0); Hemoglobin 11.5 g/dL (13.5-16.0); Immature Granulocytes % (Auto) 1 % (0-0); Immature Granulocytes Auto 0.06 Thou/mm3 (0.00-0.00); Lymphocytes # (Auto) 2.1 Thou/mm3 (1.0-4.8); Lymphocytes % (Auto) 17 % (10-50); Mean Corpuscular HGB Conc 32.3 g/dl (31.0-37.0); Mean Corpuscular Hemoglobin 30.3 pg (25.0-35.0); Mean Corpuscular Volume 94 fL (80-100); Monocytes # (Auto) 1.2 Thou/mm3 (0.0-0.8); Monocytes % (Auto) 10 % (0-12); Neutrophils # (Auto) 8.6 Thou/mm3 (1.8-7.7); Neutrophils % (Auto) 71 % (37-80); Nucleated Red Blood Cell % 0 /100 WBC (0); Platelet Count 183 Thou/mm3 (140-440); RDW Standard Deviation 44.8 fL (35.1-43.9); White Blood Count 12.2 Thou/mm3 (3.8-10.6)
[2024-05-26 06:20] LABS: Glucose Estimated Average 180 mg/dL (80-131); Hemoglobin A1C 7.9 % Hgb (4.8-6.0)
[2024-05-26 06:30] LABS: Alanine Aminotransferase 21 U/L (10-49); Albumin, Serum 3.9 gm/dL (3.4-4.8); Albumin/Globulin Ratio 1.2 (1.2-2.2); Alkaline Phosphatase 94 U/L (46-116); Anion Gap 8 (7-16); Aspartate Amino Transferase 17 U/L (0-34); BUN/Creatinine Ratio 16 Ratio (12-20); Bilirubin,Total 0.3 mg/dL (0.3-1.2); Blood Urea Nitrogen 16 mg/dL (9-23); Calcium 8.8 mg/dL (8.3-10.6); Calcium (Corrected) 8.9 mg/dL (8.5-10.1); Carbon Dioxide 25.6 mMol/L (20.0-31.0); Chloride 106 mMol/L (98-107); Estimated Creatinine Clearance 70.7 mL/min (>60); Globulin 3.2 gm/dL (2.3-3.5); Glucose 121 mg/dL (74-106); Magnesium 2.2 mg/dL (1.6-2.6); Osmolality,Calculated 281 (275-295); Phosphorous 3.3 mg/dL (2.4-5.1); Potassium 3.6 mMol/L (3.4-5.1); Sodium 140 mMol/L (136-145); Thyroid Stimulating Hormone 2.81 uIU/mL (0.55-4.78); Total Protein 7.1 gm/dL (5.7-8.2); eGFR > 60 See Note
[2024-05-26 08:19] LABS: Carcinoembryonic Antigen 1.2 ng/mL (0.0-5.0)
[2024-05-26] MEDS: PANTOPRAZOLE INJ 40 MG VIAL IVP (08:50)
[2024-05-26] MEDS: FLUCONAZOLE 100 MG TABLET 400 MG PO (08:50)
[2024-05-26] MEDS: CEFEPIME INJ 2 GM in SODIUM CHLORIDE 0.9% (Popper) 50 ML IV (08:51)
--- NOTE | 2024-05-26 09:26 | ESPR_ITS ---
<Statement entered by Emili Upton MD - 05/27/24 00:55> Patient was seen and examined by me personally. I have directly supervised and reviewed the above documentation by the team resident and agree with its findings with any exceptions or additional findings as below. Plan of care was discussed with the attending, Dr. Lugo. Patient is an overnight admission. He is a 68-year-old male who was admitted due to episode of hemoptysis and cavitary lesion found on imaging. 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 TB quantiferon was ordered. Infectious Disease Dr. Chen is consulted and following the case, AFB sputums were ordered. Will continue IV ceftriaxone for possible superimposed pneumonia. Emili Upton, PGY-2 Documentation for date of: 05/26/24 Subjective Subjective Interval history: Patient was seen and examined by the bedside. No acute overnight events. Patient reports his cough has improved, but reports having blood in the sputum. He reports that he was started on fluconazole again after his doctor checked him for cocci Ig and they were positive. Infectious disease specialist Dr Chen was consulted, antibiotic regimen was changed to Rocephin 1 g daily, AFBs were ordered. He also ordered TSH, RPR, B12, folate. Exam Vital Signs Temp Pulse Resp BP Pulse Ox O2 Del Method O2 Flow Rate 97.1 F 88 18 131/69 H 96 Nasal Cannula 2 05/26/24 08:00 05/26/24 08:00 05/26/24 08:00 05/26/24 08:00 05/26/24 08:00 05/26/24 08:00 05/26/24 08:00 Narrative Exam Physical Exam General: Awake and in no acute distress. Conversational and non-toxic appearing. HEENT: Normocephalic, atraumatic, mucous membranes moist. Heart: Regular rate and rhythm, no murmurs. Lungs: Clear to auscultation with no wheezing or crackles. Abdomen: Soft, nondistended, nontender, positive bowel sounds. ?No guarding or rebound tenderness. Neurologic: Alert and oriented x3, no gross neurological deficit, and patient able to move all 4 extremities. Extremities: No edema. Skin: No rash or ecchymoses. Objective Labs 05/27/24 04:57 05/27/24 04:57 Labs: Laboratory Results - last 24 hr 05/25/24 05/25/24 05/25/24 14:20 15:13 17:59 WBC 15.7 H RBC 4.49 L Hgb 13.6 Hct 41.0 MCV 91 MCH 30.3 MCHC 33.2 RDW Std Deviation 43.8 Plt Count 237 Neut % (Auto) 77 Lymph % (Auto) 13 [facility] % (Auto) 8 Eos % (Auto) 0 Baso % (Auto) 0 Neut # (Auto) 12.1 H Lymph # (Auto) 2.1 [facility] # (Auto) 1.3 H Eos # (Auto) 0.0 Baso # (Auto) 0.1 Immature Gran # (Auto) 0.09 H Absolute Nucleated RBC 0.00 Immature Gran % 1 H Nucleated RBC % 0 PT 11.9 INR 1.1 APTT 20.0 L Sodium 139 Potassium 4.7 Chloride 102 Carbon Dioxide 26.8 Anion Gap 10 BUN 19 Creatinine 1.2 Estim Creat Clear Calc 58.9 L eGFR > 60 BUN/Creatinine Ratio [address] Glu mg/dL Hemoglobin A1c Calculated Osmolality 282 Lactic Acid 2.7 H 1.2 Calcium 9.6 Corrected Calcium 9.6 Phosphorus 2.4 Magnesium 1.8 Total Bilirubin 0.4 AST 32 ALT 33 Alkaline Phosphatase 115 Lactate Dehydrogenase 364 H Troponin I < 0.020 B-Natriuretic Peptide < 20 Total Protein 8.4 H Albumin 4.5 Globulin 3.9 H Albumin/Globulin Ratio 1.2 Lipase 44 Carcinoembryonic Ag CA 125 Antigen Procalcitonin 0.19 TSH Ur Collection Type Clean Catch Urine Color Lt-Yellow Urine Clarity Clear Urine pH 6.0 Ur Specific [place] 1.021 Urine Protein 3+ A Urine Glucose (UA) Negative Urine Ketones Negative Urine Blood 2+ A Urine Nitrite Negative Urine Bilirubin Negative Urine Urobilinogen (Auto) Negative Ur Leukocyte Esterase Negative Urine RBC 5 H Urine WBC 1 Ur Squamous Epith Cells 1 Urine Bacteria None 05/26/24 05:42 WBC 12.2 H RBC 3.80 L Hgb 11.5 L D Hct 35.6 L MCV 94 MCH 30.3 MCHC 32.3 RDW Std Deviation 44.8 H Plt Count 183 D Neut % (Auto) 71 Lymph % (Auto) 17 [facility] % (Auto) 10 Eos % (Auto) 1 Baso % (Auto) 0 Neut # (Auto) 8.6 H Lymph # (Auto) 2.1 [facility] # (Auto) 1.2 H Eos # (Auto) 0.2 Baso # (Auto) 0.1 Immature Gran # (Auto) 0.06 H Absolute Nucleated RBC 0.00 Immature Gran % 1 H Nucleated RBC % 0 PT INR APTT Sodium 140 Potassium 3.6 D Chloride 106 Carbon Dioxide 25.6 Anion Gap 8 BUN 16 Creatinine 1.0 Estim Creat Clear Calc 70.7 eGFR > 60 BUN/Creatinine Ratio [address] Glu mg/dL 180 H Hemoglobin A1c 7.9 H Calculated Osmolality 281 Lactic Acid Calcium 8.8 Corrected Calcium 8.9 Phosphorus 3.3 Magnesium 2.2 Total Bilirubin 0.3 AST 17 ALT 21 Alkaline Phosphatase 94 D Lactate Dehydrogenase Troponin I B-Natriuretic Peptide Total Protein 7.1 Albumin 3.9 D Globulin 3.2 Albumin/Globulin Ratio 1.2 Lipase Carcinoembryonic Ag 1.2 CA 125 Antigen 6.0 Procalcitonin TSH 2.81 Ur Collection Type Urine Color Urine Clarity Urine pH Ur Specific [place] Urine Protein Urine Glucose (UA) Urine Ketones Urine Blood Urine Nitrite Urine Bilirubin Urine Urobilinogen (Auto) Ur Leukocyte Esterase Urine RBC Urine WBC Ur Squamous Epith Cells Urine Bacteria Quality Measures Quality Measures none Advance care planning discussed with:: other Assessment & Plan Assessment Current Active Medications: Generic Name Dose Route Start Last Admin Trade Name Freq PRN Reason Stop Dose Admin Acetaminophen 650 mg 05/25/24 21:52 Acetaminophen 325 Mg Tablet PO 06/24/24 21:51 Q6H PRN Fever >101.5 Acetaminophen 650 mg 05/25/24 21:52 Acetaminophen 325 Mg Tablet PO 06/24/24 21:51 Q6H PRN PAIN SCALE 1-3 (mild Hydrocodone Bitart/Acetaminophen 1 tab 05/25/24 21:52 Hydrocodone/Apap 5/325 Tablet PO 05/30/24 21:51 Q4HR PRN PAIN SCALE 4-6 (Moderate Albuterol 2.5 mg 05/25/24 21:52 Albuterol Rt 2.5 Mg/0.5 Ml Nebu INH 06/24/24 21:51 Q2HR PRN SHORTNESS OF BREATH OR WHEEZE Dextrose 25 ml 05/25/24 22:07 Dextrose 50%-Water Inj 50 Ml Syringe IV 06/24/24 22:06 Q15MIN PRN BG 50-70 responsive npo pt Dextrose 50 ml 05/25/24 22:07 Dextrose 50%-Water Inj 50 Ml Syringe IV 06/24/24 22:06 Q15MIN PRN BG <50 OR BG <70 & pt unresponsive Fluconazole 400 mg 05/26/24 09:00 05/26/24 08:50 Fluconazole 100 Mg Tablet PO 06/02/24 08:59 400 mg QDAY PENG Administration Glucagon 1 mg 05/25/24 22:07 Glucagon Inj 1 Mg Vial IM Q15MIN PRN BG <70, and no IV access Hydralazine HCl 10 mg 05/25/24 22:11 Hydralazine Inj 20 Mg/Ml Vial IV 06/24/24 22:10 Q2H PRN SBP >180 Cefepime HCl 2 gm/ Sodium 50 mls @ 100 mls/hr 05/26/24 09:00 05/26/24 08:51 Chloride IV 06/02/24 08:59 100 mls/hr Q12HR PENG Administration Vancomycin/Sodium Chloride 750 mg in 150 mls @ 120 mls/hr 05/26/24 10:00 Vancomycin/Ns 750 Mg Ivpb IV 06/02/24 09:59 BID@1000,2200 [facility] Protocol Insulin Glargine 5 unit 05/26/24 09:00 05/26/24 08:32 Insulin Glargine (Lantus) 5 Unit/0.05 Ml (Per 5 Units) SC 06/25/24 08:59 Not Given QDAY [facility] Insulin Human Lispro 0 unit 05/26/24 00:00 05/26/24 05:14 Insulin Lispro (Admelog) 1 Unit/0.01 Ml Unit SC 06/25/24 00:00 Not Given Q6HR [facility] Protocol Ondansetron HCl 4 mg 05/25/24 21:52 Ondansetron Inj 2 Mg/Ml Inj 2 Ml IV 06/24/24 21:51 Q6H PRN NAUSEA OR VOMITING Protocol Pantoprazole Sodium 40 mg 05/26/24 09:00 05/26/24 08:50 Pantoprazole Inj 40 Mg Vial IVP 06/25/24 08:59 40 mg Q12HR [facility] Administration Pharmacy Consult 1 each 05/26/24 09:00 Vancomycin Pharmacy To Dose 1 Each Each IV 06/25/24 08:59 QDAY PRN PROTOCOL Sennosides 1 tab 05/25/24 21:52 Senna Tablet PO 06/24/24 21:51 BID PRN CONSTIPATION Protocol Sodium Chloride 3 ml 05/25/24 21:52 Sodium Chloride Rt Nila 0.9% 3 Ml Nebu INH 06/24/24 21:51 PRN PRN SOLN Plan A 68-year-old male patient with reportedly history of depression, dementia, pulmonary cocci with cavitary lesion, 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 #Hemoptysis #Possible hospital-acquired pneumonia #Cavitary lesion of the left lung #History of pulmonary coccidiomycosis #Sepsis most likely secondary to pneumonia, resolved Patient has history of pulmonary coccidiomycosis and cavitary lesion since 2019, presented with questionable hematemesis versus hemoptysis. patient was noticed to be febrile with body temperature of 102.1, heart rate of 110, and blood pressure of 149/78, he was saturating 94% on room air. His labs showed WBC of 15, hemoglobin of 13, serum creatinine is 1.2 of note his serum creatinine in 2020 is 0.6, lactic acid on presentation was 2.7 however it went down to 1.7, Pro-Moncho 0.9, COVID and influenza virus screening came back negative. His chest x-ray showed cavitary lesion and pneumonic infiltration. In review of the patient's chart we noticed that in [address] scan of the chest showed 3.5 cm with a cavitary lesion most likely secondary to cocci and he was prescribed fluconazole since that time. Also noticed that he has previous Abdominal CT scan in 2020 which showed multiple cystic lesions of the liver. On repeat of CT scan today which showed that the cavitary lesion at this time has mass component however still similar in size associated with pneumonia. Review of his serology showed positive cocci IgG in 2019. Tumor markers are negative, quantiferon, Afbs ardered. Plan: ? Isolation precautions ? Blood culture and urine culture pending ? Ceftriaxone 1 g qday ? MRSA screening pending ? Legionella screening antigen pending ? QuantiFERON test sent - AFPs ordered ? Aspiration precautions ? HOB 30 degree #History of cystic lesions of the liver - accidental finding Family provided complex history mentioned that the patient started to cough and then vomited and coughed blood. They denied any history of liver disease in the past, denied any change of color of the stool and denied any history of liver disease. Previous CT scan showed multiple cystic lesions of the liver in 2020. At this time he is hemodynamically stable. Will continue to monitor his CBC regularly Plan ? Daily CBC ? Stool occult blood to rule out GIB ? Abdominal ultrasound unremarkable for acute pathology #LISE most likely prerenal, resolving Patient on presentation was septic, lactic acid was 2.7, his serum creatinine last was in 2020 and it was 0.6. Most likely the patient has prerenal LISE secondary to decreased oral intake and vomiting versus renal cause secondary to sepsis 05/26: creatinine 1.0, BUN 16. Plan ? Continue to monitor kidney function daily ? Avoid nephrotoxic medications #Right leg DVT ruled out On examination patient was noticed to have right lower extremity edema +1 to +2 however trace edema on the left leg. His BNP is 20 and he has no history of heart failure. Plan ? Doppler venous ultrasound for the right lower extremity #History of diabetes mellitus Plan - insulin sliding scale History of hypertension Plan ? Medications reconciliation ? Hold home antihypertensive medication #History of dementia #History of depression Plan ? Resume home medications after med reconciliation Health maintenance: FEN: carbohydrate consistent DVT prophylaxis: SCDs GI prophylaxis: pantoprazole IV Dispo: telemetry CODE STATUS: Full code Plan of care discussed with attending Dr. Lugo, PGY-[address] Upton and PGY-[address] Fritz. Devorah Goldstein MD, PGY 1. Attending Provider Attestation/Addendum I have examined the patient, reviewed labs and imaging findings, discussed the case with the resident(s), and reviewed entered orders. I agree with the plan of care as outlined in this note, with these additional summaries/recommendations: Patient seen at bedside. No acute overnight events. Patient is alert and oriented x 3. Patient was found to have cavitary lesion of lung which was previously negative for active tuberculosis. Patient now having mild hemoptysis. Pending AFBs and quantiferon to rule out active TB. Patient has history of valley fever and cocci meningitis. Patient resumed on high-dose fluconazole. Repeat cocci titers ordered. Infectious disease following. Patient also suspected of having superimposed bacterial pneumonia. Currently on IV Rocephin. Blood cultures pending. Patient also noted to have liver lesion most likely simple cyst and can follow-up outpatient. LISE and lactic acidosis resolved. Continue basal and bolus insulin for diabetes mellitus type 2. A1c 7.9%. Repeat hematology and chemistry panel in AM. Continue isolation precautions. Dr. Parish MD
[2024-05-26] MEDS: VANCOMYCIN/NS 750 MG IVPB 750 MG/150 ML BAG 120 MG IV (09:32)
--- NOTE | 2024-05-26 10:01 | ESPR_ITS ---
Subjective Subjective Interval history: newly added this am to list. on tele. hx. noted. prior nasal mrsa neg . hx of pos cocci in 2020. 1:32 then. was thought to be lower (see notes), prior afb neg in 2020. admitted for hemoptysis. no prior qtf testing noted. current test pending. Exam Vital Signs Temp Pulse Resp BP Pulse Ox O2 Del Method O2 Flow Rate 97.1 F 88 18 131/69 H 96 Nasal Cannula 2 05/26/24 08:00 05/26/24 08:00 05/26/24 08:00 05/26/24 08:00 05/26/24 08:00 05/26/24 08:00 05/26/24 08:00 Narrative Exam please evaluate for ams. that may include an LP. I will send cocci to d, but we will not likely have a result till sunday, so rx ok in the interim. exam benign. speaks for him. no peg noted. on O2. no cough. Objective - Internal Medicine Labs 05/26/24 05:42 05/26/24 05:42 Labs: Laboratory Results - last 24 hr 05/25/24 05/25/24 05/25/24 14:20 15:13 17:59 WBC 15.7 H RBC 4.49 L Hgb 13.6 Hct 41.0 MCV 91 MCH 30.3 MCHC 33.2 RDW Std Deviation 43.8 Plt Count 237 Neut % (Auto) 77 Lymph % (Auto) 13 [place] % (Auto) 8 Eos % (Auto) 0 Baso % (Auto) 0 Neut # (Auto) 12.1 H Lymph # (Auto) 2.1 [place] # (Auto) 1.3 H Eos # (Auto) 0.0 Baso # (Auto) 0.1 Immature Gran # (Auto) 0.09 H Absolute Nucleated RBC 0.00 Immature Gran % 1 H Nucleated RBC % 0 PT 11.9 INR 1.1 APTT 20.0 L Sodium 139 Potassium 4.7 Chloride 102 Carbon Dioxide 26.8 Anion Gap 10 BUN 19 Creatinine 1.2 Estim Creat Clear Calc 58.9 L eGFR > 60 BUN/Creatinine Ratio [address] Glu mg/dL Hemoglobin A1c Calculated Osmolality 282 Lactic Acid 2.7 H 1.2 Calcium 9.6 Corrected Calcium 9.6 Phosphorus 2.4 Magnesium 1.8 Total Bilirubin 0.4 AST 32 ALT 33 Alkaline Phosphatase 115 Lactate Dehydrogenase 364 H Troponin I < 0.020 B-Natriuretic Peptide < 20 Total Protein 8.4 H Albumin 4.5 Globulin 3.9 H Albumin/Globulin Ratio 1.2 Lipase 44 Carcinoembryonic Ag CA 125 Antigen Procalcitonin 0.19 TSH Ur Collection Type Clean Catch Urine Color Lt-Yellow Urine Clarity Clear Urine pH 6.0 Ur Specific [place] 1.021 Urine Protein 3+ A Urine Glucose (UA) Negative Urine Ketones Negative Urine Blood 2+ A Urine Nitrite Negative Urine Bilirubin Negative Urine Urobilinogen (Auto) Negative Ur Leukocyte Esterase Negative Urine RBC 5 H Urine WBC 1 Ur Squamous Epith Cells 1 Urine Bacteria None 05/26/24 05:42 WBC 12.2 H RBC 3.80 L Hgb 11.5 L D Hct 35.6 L MCV 94 MCH 30.3 MCHC 32.3 RDW Std Deviation 44.8 H Plt Count 183 D Neut % (Auto) 71 Lymph % (Auto) 17 [place] % (Auto) 10 Eos % (Auto) 1 Baso % (Auto) 0 Neut # (Auto) 8.6 H Lymph # (Auto) 2.1 [place] # (Auto) 1.2 H Eos # (Auto) 0.2 Baso # (Auto) 0.1 Immature Gran # (Auto) 0.06 H Absolute Nucleated RBC 0.00 Immature Gran % 1 H Nucleated RBC % 0 PT INR APTT Sodium 140 Potassium 3.6 D Chloride 106 Carbon Dioxide 25.6 Anion Gap 8 BUN 16 Creatinine 1.0 Estim Creat Clear Calc 70.7 eGFR > 60 BUN/Creatinine Ratio [address] Glu mg/dL 180 H Hemoglobin A1c 7.9 H Calculated Osmolality 281 Lactic Acid Calcium 8.8 Corrected Calcium 8.9 Phosphorus 3.3 Magnesium 2.2 Total Bilirubin 0.3 AST 17 ALT 21 Alkaline Phosphatase 94 D Lactate Dehydrogenase Troponin I B-Natriuretic Peptide Total Protein 7.1 Albumin 3.9 D Globulin 3.2 Albumin/Globulin Ratio 1.2 Lipase Carcinoembryonic Ag 1.2 CA 125 Antigen 6.0 Procalcitonin TSH 2.81 Ur Collection Type Urine Color Urine Clarity Urine pH Ur Specific [place] Urine Protein Urine Glucose (UA) Urine Ketones Urine Blood Urine Nitrite Urine Bilirubin Urine Urobilinogen (Auto) Ur Leukocyte Esterase Urine RBC Urine WBC Ur Squamous Epith Cells Urine Bacteria Assessment & Plan A&P Narrative hx of dementia. will order some w/u. if afb pos, may have had exposure elsewhere. prior afb neg in 2020 prior cocci noted. 1:32. rx per others. last recorded test in 2020. was neg in 2019 pos 2018 noted. changed cefepime to rocephin 1 gm daily and stopped the other abx pending more data will see again on sun. ordered afb's. has been a few yrs since the last ones and suggests he has been on flucon Time Spent With Patient Time: Total time spent is greater than 50% in coordination of care (as documented) at patient's floor/unit and/or counseling patient:
[2024-05-26 11:32] LABS: Coccid Serology, CF (UCD)* See Sep Rpt
--- NOTE | 2024-05-26 12:46 | ESCONSULT_ITS ---
RE: HIMA KAUR : 1955 DATE OF CONSULTATION: 05/26/2024 REFERRING PHYSICIAN: Dr. Levine. REASON FOR CONSULTATION: Left upper lobe cavitary lung lesion, it is old, and right lower lobe nodule seen on prior imaging with a history of a positive Valley fever test in 2020 . Prior to that, he had a positive test at 1:2 by quantitative immunodiffusion in 2017. His test had been negative in 2019. The patient has been on fluconazole for a couple of years. He takes high doses with presumed history of cocci meningitis. We have no proof of that. He has not had an LP according to his . His medical problems are as listed. He has a history of dementia and is a poor historian. His answered those questions for him. He lives with his family. Please see prior notes for details. PHYSICAL EXAMINATION: Shows a pleasant, non, ill-appearing gentleman. He is on some supplemental oxygen but it looks like it was started more by the nurses for general principles rather than because of actual need. Oxygen saturation on 2 liters are in the upper 90s, which suggested his oxygen requirement may actually not be very dramatic, which is consistent with his imaging. The cough and hemoptysis have already improved. He is not particularly anemic, at least not newly anemic of any significant amount. His hemoglobin has always been a little bit low. He is a little bit dry on arrival, but that has improved as well. His A1c is 7.9. This is probably adequate for a patient with dementia. ASSESSMENT: 1. Diabetes, hemoglobin A1c 7.9. 2. Dementia. 3. Cavitary lung disease, last workup in 2010. 4. History of valley fever with presumptive history of cocci meningitis, on high-dose fluconazole because of presumptive history more than anything else. No LP is available for review. RECOMMENDATIONS: We should probably get an LP and other workup to make sure he does not have other forms of dementia that are treatable. This is more of a treatable cause of dementia workup. I am going to check thyroid test and syphilis test and some others apparently it was canceled by others previouslyand vitamin B12 and folate. I went ahead and ordered those. I will check on him again on Sunday. DT: 10:32:36 TT: 11:24:00 Ref: [id number] - TID: [id number] MTDD
--- NOTE | 2024-05-26 12:47 | PC.SS ---
SS met with patient regarding his d/c plan.? Pt is alert/oriented.? Pt was admitted for Hemotesis vs Heatemis.? Pt confirmed demographic and contact information is correct on facesheet.? Pt resides with and 2 sons.? Pt ambulates using a 2 wheel walker.? Pt is ok with all ADLs.? Pt is on 2 liters of O2.? Pt does not utilize O2 at home.? Pt named his son, Chaitanya Kumar medical decision maker if he is unable.? SS provided verbal choices for d/c to home or SNF.? Patient?s choice is to return home upon d/c.? Pt states he is diabetic, has glucometer, and test strips.? Pt states he is not on dialysis.? Pt states he last appointment with PCP was Apr 29, 2024 and next appointment is August 11, 2024 at 10:45am. D/C plan:? Return home Next of Kin:? Chaitanya Kumar, son, phone# [phone] PCP:? Dr. Xu Rodrigues from [facility] [place] Address:? Correct on facesheet
[2024-05-26 13:51] LABS: Cult AFB Sendout- Sputum* See Sep Rpt
[2024-05-26] MEDS: INSULIN LISPRO (AdmeLOG) 1 UNIT/0.01 ML UNIT SC ×2 (16:58→20:22)
[2024-05-26] MEDS: SODIUM CHLORIDE RT 10% 15 ML NEBU INH (22:02)
[2024-05-26 22:35] LABS: Cult AFB Sendout- Sputum* See Sep Rpt
[2024-05-27] VITALS (12 sets, daily range): BP systolic 124–147; BP diastolic 77–85; PULSE 64–81; RESP 12–23; TEMP 36–36.6; O2SAT 95–99; BMI 31.8
[2024-05-27 05:15] LABS: Basophils % (Auto) 0 % (0-2.5); Eosinophils # (Auto) 0.5 Thou/mm3 (0.0-0.5); Eosinophils % (Auto) 5 % (0-10); Hematocrit 36.2 % (41.0-53.0); Hemoglobin 11.8 g/dL (13.5-16.0); Immature Granulocytes % (Auto) 0 % (0-0); Immature Granulocytes Auto 0.04 Thou/mm3 (0.00-0.00); Lymphocytes # (Auto) 1.8 Thou/mm3 (1.0-4.8); Lymphocytes % (Auto) 18 % (10-50); Mean Corpuscular HGB Conc 32.6 g/dl (31.0-37.0); Mean Corpuscular Volume 92 fL (80-100); Monocytes # (Auto) 1.2 Thou/mm3 (0.0-0.8); Monocytes % (Auto) 12 % (0-12); Neutrophils # (Auto) 6.6 Thou/mm3 (1.8-7.7); Neutrophils % (Auto) 65 % (37-80); Nucleated Red Blood Cell % 0 /100 WBC (0); Platelet Count 209 Thou/mm3 (140-440); RDW Standard Deviation 43.8 fL (35.1-43.9); Red Blood Count 3.93 Miln/mm3 (4.50-5.90); White Blood Count 10.1 Thou/mm3 (3.8-10.6)
[2024-05-27 05:55] LABS: Alanine Aminotransferase 16 U/L (10-49); Albumin, Serum 3.8 gm/dL (3.4-4.8); Albumin/Globulin Ratio 1.2 (1.2-2.2); Alkaline Phosphatase 92 U/L (46-116); Anion Gap 9 (7-16); Aspartate Amino Transferase 12 U/L (0-34); BUN/Creatinine Ratio 18 Ratio (12-20); Bilirubin,Total 0.3 mg/dL (0.3-1.2); Blood Urea Nitrogen 20 mg/dL (9-23); Calcium 9.1 mg/dL (8.3-10.6); Calcium (Corrected) 9.3 mg/dL (8.5-10.1); Carbon Dioxide 26.6 mMol/L (20.0-31.0); Chloride 105 mMol/L (98-107); Creatinine (Component) 1.1 mg/dL (0.6-1.3); Estimated Creatinine Clearance 64.1 mL/min (>60); Globulin 3.2 gm/dL (2.3-3.5); Glucose 121 mg/dL (74-106); Osmolality,Calculated 284 (275-295); Phosphorous 4.2 mg/dL (2.4-5.1); Potassium 3.7 mMol/L (3.4-5.1); Sodium 141 mMol/L (136-145); Thyroid Stimulating Hormone 3.52 uIU/mL (0.55-4.78); eGFR > 60 See Note
[2024-05-27 06:01] LABS: Cult AFB Sendout- Sputum* See Sep Rpt
[2024-05-27 06:11] LABS: Ammonia < 10 uMol/L (11-32); Folate > 24.00 ng/mL (>5.38); Vitamin B12 331 pg/mL (211-911)
[2024-05-27 06:34] LABS: Syphilis Nonreactive (Nonreactive)
[2024-05-27] MEDS: FLUCONAZOLE 100 MG TABLET 400 MG PO (09:28)
[2024-05-27] MEDS: PANTOPRAZOLE INJ 40 MG VIAL IVP (09:29)
[2024-05-27] MEDS: INSULIN GLARGINE (Lantus) 5 UNIT/0.05 ML (PER 5 UNITS) SC (09:32)
--- NOTE | 2024-05-27 12:29 | ESPR_ITS ---
Documentation for date of: 05/27/24 Subjective Subjective Interval history: Patient was seen and examined by the bedside. No acute overnight events. Patient is feeling well. Saturates well on 3L O2, will try to wean him off today. Denies chest pain, shortness of breath, cough, hemoptysis, dysuria. Continues to receive antibiotics IV fluids. Waiting for QuantiFERON, AFBs results. 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 Patient denies hving LP previously. Today a conversation was held with patient and his family regarding pursuing further work up, as ID specialist recommends, doing a LP. It was explained to them that the results of the LP will not change the management as the patient is already on Fluconazole. The patient and the family decided to think about it. Exam Vital Signs Temp Pulse Resp BP Pulse Ox O2 Del Method O2 Flow Rate 97.0 F 67 16 143/84 H 98 Nasal Cannula 3 05/27/24 11:48 05/27/24 11:48 05/27/24 11:48 05/27/24 11:48 05/27/24 11:48 05/27/24 11:48 05/27/24 11:48 Narrative Exam Physical Exam General: Awake and in no acute distress. Conversational and non-toxic appearing. HEENT: Normocephalic, atraumatic, mucous membranes moist. Heart: Regular rate and rhythm, no murmurs. Lungs: Clear to auscultation with no wheezing or crackles. Abdomen: Soft, nondistended, nontender, positive bowel sounds. ?No guarding or rebound tenderness. Neurologic: Alert and oriented x3, no gross neurological deficit, and patient able to move all 4 extremities. Extremities: No edema. Skin: No rash or ecchymoses. Objective Labs 05/27/24 04:57 05/27/24 04:57 Labs: Laboratory Results - last 24 hr 05/27/24 04:57 WBC 10.1 RBC 3.93 L Hgb 11.8 L Hct 36.2 L MCV 92 MCH 30.0 MCHC 32.6 RDW Std Deviation 43.8 Plt Count 209 Neut % (Auto) 65 Lymph % (Auto) 18 [place] % (Auto) 12 Eos % (Auto) 5 Baso % (Auto) 0 Neut # (Auto) 6.6 Lymph # (Auto) 1.8 [place] # (Auto) 1.2 H Eos # (Auto) 0.5 Baso # (Auto) 0.0 Immature Gran # (Auto) 0.04 H Absolute Nucleated RBC 0.00 Immature Gran % 0 Nucleated RBC % 0 Sodium 141 Potassium 3.7 Chloride 105 Carbon Dioxide 26.6 Anion Gap 9 BUN 20 Creatinine 1.1 Estim Creat Clear Calc 64.1 eGFR > 60 BUN/Creatinine Ratio 18 Glucose 121 H Calculated Osmolality 284 Calcium 9.1 Corrected Calcium 9.3 Phosphorus 4.2 Magnesium 2.0 Total Bilirubin 0.3 AST 12 ALT 16 Alkaline Phosphatase 92 Ammonia < 10 L Total Protein 7.0 Albumin 3.8 Globulin 3.2 Albumin/Globulin Ratio 1.2 Vitamin B12 331 Folate > 24.00 TSH 3.52 Syphilis Serology Nonreactive Quality Measures Quality Measures VTE prophylaxis Advance care planning discussed with:: other Assessment & Plan Assessment Current Active Medications: Generic Name Dose Route Start Last Admin Trade Name Freq PRN Reason Stop Dose Admin Acetaminophen 650 mg 05/25/24 21:52 Acetaminophen 325 Mg Tablet PO 06/24/24 21:51 Q6H PRN Fever >101.5 Acetaminophen 650 mg 05/25/24 21:52 Acetaminophen 325 Mg Tablet PO 06/24/24 21:51 Q6H PRN PAIN SCALE 1-3 (mild Hydrocodone Bitart/Acetaminophen 1 tab 05/25/24 21:52 Hydrocodone/Apap 5/325 Tablet PO 05/30/24 21:51 Q4HR PRN PAIN SCALE 4-6 (Moderate Albuterol 2.5 mg 05/25/24 21:52 Albuterol Rt 2.5 Mg/0.5 Ml Nebu INH 06/24/24 21:51 Q2HR PRN SHORTNESS OF BREATH OR WHEEZE Dextrose 25 ml 05/25/24 22:07 Dextrose 50%-Water Inj 50 Ml Syringe IV 06/24/24 22:06 Q15MIN PRN BG 50-70 responsive npo pt Dextrose 50 ml 05/25/24 22:07 Dextrose 50%-Water Inj 50 Ml Syringe IV 06/24/24 22:06 Q15MIN PRN BG <50 OR BG <70 & pt unresponsive Fluconazole 400 mg 05/26/24 09:00 05/27/24 09:28 Fluconazole 100 Mg Tablet PO 06/02/24 08:59 400 mg QDAY PENG Administration Glucagon 1 mg 05/25/24 22:07 Glucagon Inj 1 Mg Vial IM Q15MIN PRN BG <70, and no IV access Hydralazine HCl 10 mg 05/25/24 22:11 Hydralazine Inj 20 Mg/Ml Vial IV 06/24/24 22:10 Q2H PRN SBP >180 Ceftriaxone Sodium 1,000 mg/ 50 mls @ 100 mls/hr 05/31/24 12:00 Sodium Chloride IV 06/07/24 11:59 QDAY PENG Insulin Glargine 5 unit 05/26/24 09:00 05/27/24 09:32 Insulin Glargine (Lantus) 5 Unit/0.05 Ml (Per 5 Units) SC 06/25/24 08:59 5 unit QDAY PENG Administration Insulin Human Lispro 0 unit 05/26/24 17:00 05/27/24 11:45 Insulin Lispro (Admelog) 1 Unit/0.01 Ml Unit SC 06/25/24 00:00 Not Given ACHS PENG Protocol Ondansetron HCl 4 mg 05/25/24 21:52 Ondansetron Inj 2 Mg/Ml Inj 2 Ml IV 06/24/24 21:51 Q6H PRN NAUSEA OR VOMITING Protocol Pantoprazole Sodium 40 mg 05/27/24 09:00 05/27/24 09:29 Pantoprazole Inj 40 Mg Vial IVP 06/26/24 08:59 40 mg QDAY PENG Administration Sennosides 1 tab 05/25/24 21:52 Senna Tablet PO 06/24/24 21:51 BID PRN CONSTIPATION Protocol Sodium Chloride 3 ml 05/25/24 21:52 Sodium Chloride Rt Nila 0.9% 3 Ml Nebu INH 06/24/24 21:51 PRN PRN SOLN Plan A 68-year-old male patient with reportedly history of depression, dementia, pulmonary cocci with cavitary lesion, 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 #Hemoptysis, resolved #Hospital-acquired pneumonia, improving #Cavitary lesion of the left lung #History of pulmonary coccidiomycosis #Sepsis most likely secondary to pneumonia, resolved Patient has history of pulmonary coccidiomycosis and cavitary lesion since 2019, presented with questionable hematemesis versus hemoptysis. patient was noticed to be febrile with body temperature of 102.1, heart rate of 110, and blood pressure of 149/78, he was saturating 94% on room air. His labs showed WBC of 15, hemoglobin of 13, serum creatinine is 1.2 of note his serum creatinine in 2020 is 0.6, lactic acid on presentation was 2.7 however it went down to 1.7, Pro-Moncho 0.9, COVID and influenza virus screening came back negative. His chest x-ray showed cavitary lesion and pneumonic infiltration. In review of the patient's chart we noticed that in [address] scan of the chest showed 3.5 cm with a cavitary lesion most likely secondary to cocci and he was prescribed fluconazole since that time. Also noticed that he has previous Abdominal CT scan in 2020 which showed multiple cystic lesions of the liver. On repeat of CT scan today which showed that the cavitary lesion at this time has mass component however still similar in size associated with pneumonia. Review of his serology showed positive cocci IgG in 2019. Tumor markers are negative, quantiferon, Afbs ardered. Plan: ? Isolation precautions ? Blood culture negative after 48 hours, urine cultures showed mixed culture, most likely contaminated ? Ceftriaxone 1 g qday ? MRSA screening pending ? Legionella screening antigen pending ? QuantiFERON test sent - AFPs ordered ? Aspiration precautions ? HOB 30 degree #History of cystic lesions of the liver - accidental finding Family provided complex history mentioned that the patient started to cough and then vomited and coughed blood. They denied any history of liver disease in the past, denied any change of color of the stool and denied any history of liver disease. Previous CT scan showed multiple cystic lesions of the liver in 2020. At this time he is hemodynamically stable. Will continue to monitor his CBC regularly Plan ? Daily CBC ? Stool occult blood to rule out GIB ? Abdominal ultrasound unremarkable for acute pathology #LISE most likely prerenal, resolving Patient on presentation was septic, lactic acid was 2.7, his serum creatinine last was in 2020 and it was 0.6. Most likely the patient has prerenal LISE secondary to decreased oral intake and vomiting versus renal cause secondary to sepsis 05/26: creatinine 1.0, BUN 16. Plan ? Continue to monitor kidney function daily ? Avoid nephrotoxic medications #Right leg DVT ruled out On examination patient was noticed to have right lower extremity edema +1 to +2 however trace edema on the left leg. His BNP is 20 and he has no history of heart failure. Plan ? Doppler venous ultrasound for the right lower extremity #History of diabetes mellitus Plan - insulin sliding scale History of hypertension Plan ? Medications reconciliation ? Hold home antihypertensive medication #History of dementia #History of depression Plan ? Resume home medications after med reconciliation Health maintenance: FEN: carbohydrate consistent DVT prophylaxis: SCDs GI prophylaxis: pantoprazole IV Dispo: telemetry CODE STATUS: Full code Plan of care discussed with attending Dr. Lugo, PGY-[address] Upton and PGY-[address] Fritz. Devorah Goldstein MD, PGY 1. -- ATTESTATION: I saw and examined the patient this morning, and I agree with current management stated by the resident. Will continue to monitor patient during their stay. 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 Patient denied any weight loss fevers chills night sweats or recent travel. Patient was admitted to rule out TB and ID was consulted who recommended possible further workup for disseminated cocci to the meninges. Patient was informed about the risks and benefits of a lumbar puncture and patient asked for time to think about the procedure. Patient is currently on treatment for cocci and we are ruling out possible superimposed infections. Disclaimer: Despite multiple revisions, due to the dictation software being used, the document bellow may not be free of grammatical errors including phonetic/typographic errors. However, this does not deter from our commitment to providing health care in the patient's best interest in mind. Dr. Gerard Fritz, PGY-3 Attending Provider Attestation/Addendum I have examined the patient, reviewed labs and imaging findings, discussed the case with the resident(s), and reviewed entered orders. I agree with the plan of care as outlined in this note, with these additional summaries/recommendations: Patient seen at bedside. No acute overnight events. Patient is alert and oriented x 3. AFBs x 3 and quantiferon sent out and pending for cavitary lesion. 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 Infectious disease consulted who recommended possibly obtaining LP. Discussed lumbar puncture with patient and he would like to think about it. Continue high-dose fluconazole for now. If patient does not want to proceed with lumbar puncture that we will continue fluconazole dose at 400 mg daily. Continue insulin sliding scale for diabetes mellitus type 2. Outpatient follow-up for liver cyst. Continue home antihypertensives as needed. Dr. Parish MD
[2024-05-27] MEDS: INSULIN LISPRO (AdmeLOG) 1 UNIT/0.01 ML UNIT SC (16:40)
[2024-05-28] VITALS (10 sets, daily range): BP systolic 128–139; BP diastolic 73–80; PULSE 63–74; RESP 12–19; TEMP 35.9–36.9; O2SAT 94–98; BMI 30.3; BMI 31.5
--- NOTE | 2024-05-28 04:41 | PC.NURSE ---
[facility] downtime occurred on 05/28/24 from 0200 to 0320.
[2024-05-28 05:51] LABS: Basophils # (Auto) 0.1 Thou/mm3 (0.0-0.2); Basophils % (Auto) 1 % (0-2.5); Eosinophils # (Auto) 0.5 Thou/mm3 (0.0-0.5); Eosinophils % (Auto) 6 % (0-10); Hematocrit 37.4 % (41.0-53.0); Hemoglobin 12.2 g/dL (13.5-16.0); Immature Granulocytes % (Auto) 0 % (0-0); Immature Granulocytes Auto 0.04 Thou/mm3 (0.00-0.00); Lymphocytes % (Auto) 21 % (10-50); Mean Corpuscular HGB Conc 32.6 g/dl (31.0-37.0); Mean Corpuscular Hemoglobin 29.8 pg (25.0-35.0); Mean Corpuscular Volume 91 fL (80-100); Monocytes # (Auto) 0.9 Thou/mm3 (0.0-0.8); Monocytes % (Auto) 9 % (0-12); Neutrophils % (Auto) 64 % (37-80); Nucleated Red Blood Cell % 0 /100 WBC (0); Platelet Count 231 Thou/mm3 (140-440); RDW Standard Deviation 42.1 fL (35.1-43.9); White Blood Count 9.5 Thou/mm3 (3.8-10.6)
[2024-05-28 06:24] LABS: Alanine Aminotransferase 17 U/L (10-49); Albumin, Serum 3.9 gm/dL (3.4-4.8); Albumin/Globulin Ratio 1.2 (1.2-2.2); Alkaline Phosphatase 98 U/L (46-116); Anion Gap 7 (7-16); Aspartate Amino Transferase 14 U/L (0-34); BUN/Creatinine Ratio 20 Ratio (12-20); Bilirubin,Total 0.3 mg/dL (0.3-1.2); Blood Urea Nitrogen 20 mg/dL (9-23); Calcium 9.2 mg/dL (8.3-10.6); Calcium (Corrected) 9.3 mg/dL (8.5-10.1); Carbon Dioxide 28.4 mMol/L (20.0-31.0); Chloride 105 mMol/L (98-107); Globulin 3.2 gm/dL (2.3-3.5); Glucose 162 mg/dL (74-106); Magnesium 1.8 mg/dL (1.6-2.6); Osmolality,Calculated 286 (275-295); Phosphorous 3.9 mg/dL (2.4-5.1); Potassium 3.9 mMol/L (3.4-5.1); Sodium 140 mMol/L (136-145); Total Protein 7.1 gm/dL (5.7-8.2); eGFR > 60 See Note
[2024-05-28] MEDS: INSULIN LISPRO (AdmeLOG) 1 UNIT/0.01 ML UNIT SC ×3 (07:15→21:11)
[2024-05-28] MEDS: INSULIN GLARGINE (Lantus) 5 UNIT/0.05 ML (PER 5 UNITS) SC (08:16)
[2024-05-28] MEDS: FLUCONAZOLE 100 MG TABLET 400 MG PO (08:16)
[2024-05-28] MEDS: Artificial Tears 225 DROP/15 ML BTL BOTH EYES (08:16)
[2024-05-28] MEDS: SENNA TABLET 1 TAB PO (08:16)
[2024-05-28] MEDS: PANTOPRAZOLE INJ 40 MG VIAL IVP (08:16)
[2024-05-28] MEDS: cefTRIAXone 1,000 MG in SODIUM CHLORIDE 0.9% (Popper) 50 ML 100 MG IV (08:17)
--- NOTE | 2024-05-28 14:27 | XR_ITS ---
Examination: CT brain head without contrast. 2-D sagittal coronal reconstructions Date and time of exam:May 28, 2024 at 1641 hours INDICATIONS: Preop lumbar puncture, altered mental status episodes this week CTDI: vol (mGy):50.8 DLP: (mGycm):1090 Technique: Multiple CT axial sections of the brain have been obtained, 5 mm slice thickness. Contrast has not been administered. 2-D sagittal, coronal reconstructions have been obtained Low dose protocols were performed. One or more of the following dose reduction techniques were used; automated exposure control, adjustment of the mA and/or KV according to patient size, use of iterative reconstruction technique. Findings: No significant ventricular enlargement. Mild bifrontal chronic subdural hygromas, more prominent on the left side, 5 mm in thickness at the level of the frontal horns Intra-axial or extra-axial hemorrhage density is not seen. No mass effect or midline shift Basal cisterns are not remarkable. Fourth ventricle is midline. Cranial vault intact. Impression: Negative for acute hemorrhage, mass effect or midline shift
--- NOTE | 2024-05-28 14:27 | PC.NURSE ---
ZORA Arroyo Notified RN that Dr. kohli will not do XR LP until either CT or MRI of brain is done first. Dr. Upton aware and states I will enter orders.
--- NOTE | 2024-05-28 14:45 | PC.NURSE ---
Called to CT, CT staff states in a procedure now, will call when this is done and pt. can come down.
--- NOTE | 2024-05-28 15:00 | PD.IDPROG ---
Subjective Subjective Interval history: afb smears pending, but naat neg on one so far Exam Vital Signs Temp Pulse Resp BP Pulse Ox O2 Del Method O2 Flow Rate 97.8 F 66 15 139/80 H 96 Nasal Cannula 3 05/28/24 11:57 05/28/24 12:00 05/28/24 11:57 05/28/24 11:57 05/28/24 11:57 05/28/24 11:57 05/28/24 11:57 Narrative Exam limited visit Objective - Internal Medicine Labs 05/28/24 05:35 05/28/24 05:35 Labs: Laboratory Results - last 24 hr 05/28/24 05:35 WBC 9.5 RBC 4.10 L Hgb 12.2 L Hct 37.4 L MCV 91 MCH 29.8 MCHC 32.6 RDW Std Deviation 42.1 Plt Count 231 Neut % (Auto) 64 Lymph % (Auto) 21 [place] % (Auto) 9 Eos % (Auto) 6 Baso % (Auto) 1 Neut # (Auto) 6.0 Lymph # (Auto) 2.0 [place] # (Auto) 0.9 H Eos # (Auto) 0.5 Baso # (Auto) 0.1 Immature Gran # (Auto) 0.04 H Absolute Nucleated RBC 0.00 Immature Gran % 0 Nucleated RBC % 0 Sodium 140 Potassium 3.9 Chloride 105 Carbon Dioxide 28.4 Anion Gap 7 BUN 20 Creatinine 1.0 Estim Creat Clear Calc 69.0 eGFR > 60 BUN/Creatinine Ratio 20 Glucose 162 H Calculated Osmolality 286 Calcium 9.2 Corrected Calcium 9.3 Phosphorus 3.9 Magnesium 1.8 Total Bilirubin 0.3 AST 14 ALT 17 Alkaline Phosphatase 98 Total Protein 7.1 Albumin 3.9 Globulin 3.2 Albumin/Globulin Ratio 1.2 Assessment & Plan A&P Narrative hx of dementia. will order some w/u. if afb pos, may have had exposure elsewhere. prior afb neg in 2020 prior cocci noted. 1:32. rx per others. last recorded test in 2020. was neg in 2019 pos 2018 noted. changed cefepime to rocephin 1 gm daily on sunday and stopped the other abx pending more data will see again on sunday. await afb's and cocci. has been a few yrs since the last ones and suggests he has been on flucon may have chronic cocci, can not r/o CA, so if you can get a bronch, that would be great. Time Spent With Patient Time: Total time spent is greater than 50% in coordination of care (as documented) at patient's floor/unit and/or counseling patient:
--- NOTE | 2024-05-28 15:22 | PD.RESPRO ---
Documentation for date of: 05/28/24 Subjective Subjective Interval history: Patient was seen and examined by the bedside. No acute overnight events. Patient is feeling well. Denies shortness of breath, cough. Afbs pending. Patient has decided to proceed with LP. IR LP was ordered, pending. Per radiology, patient needs to have a CT head before an LP. which was ordered. Exam Vital Signs Temp Pulse Resp BP Pulse Ox O2 Del Method O2 Flow Rate 97.8 F 66 15 139/80 H 96 Nasal Cannula 3 05/28/24 11:57 05/28/24 12:00 05/28/24 11:57 05/28/24 11:57 05/28/24 11:57 05/28/24 11:57 05/28/24 11:57 Narrative Exam Physical Exam General: Awake and in no acute distress. Conversational and non-toxic appearing. HEENT: Normocephalic, atraumatic, mucous membranes moist. Heart: Regular rate and rhythm, no murmurs. Lungs: Clear to auscultation with no wheezing or crackles. Abdomen: Soft, nondistended, nontender, positive bowel sounds. ?No guarding or rebound tenderness. Neurologic: Alert and oriented x3, no gross neurological deficit, and patient able to move all 4 extremities. Extremities: No edema. Skin: No rash or ecchymoses. Objective Labs 05/29/24 05:25 05/29/24 05:25 Labs: Laboratory Results - last 24 hr 05/28/24 05:35 WBC 9.5 RBC 4.10 L Hgb 12.2 L Hct 37.4 L MCV 91 MCH 29.8 MCHC 32.6 RDW Std Deviation 42.1 Plt Count 231 Neut % (Auto) 64 Lymph % (Auto) 21 [place] % (Auto) 9 Eos % (Auto) 6 Baso % (Auto) 1 Neut # (Auto) 6.0 Lymph # (Auto) 2.0 [place] # (Auto) 0.9 H Eos # (Auto) 0.5 Baso # (Auto) 0.1 Immature Gran # (Auto) 0.04 H Absolute Nucleated RBC 0.00 Immature Gran % 0 Nucleated RBC % 0 Sodium 140 Potassium 3.9 Chloride 105 Carbon Dioxide 28.4 Anion Gap 7 BUN 20 Creatinine 1.0 Estim Creat Clear Calc 69.0 eGFR > 60 BUN/Creatinine Ratio 20 Glucose 162 H Calculated Osmolality 286 Calcium 9.2 Corrected Calcium 9.3 Phosphorus 3.9 Magnesium 1.8 Total Bilirubin 0.3 AST 14 ALT 17 Alkaline Phosphatase 98 Total Protein 7.1 Albumin 3.9 Globulin 3.2 Albumin/Globulin Ratio 1.2 Quality Measures Quality Measures VTE prophylaxis Advance care planning discussed with:: patient Assessment & Plan Assessment Current Active Medications: Generic Name Dose Route Start Last Admin Trade Name Freq PRN Reason Stop Dose Admin Acetaminophen 650 mg 05/25/24 21:52 Acetaminophen 325 Mg Tablet PO 06/24/24 21:51 Q6H PRN Fever >101.5 Acetaminophen 650 mg 05/25/24 21:52 Acetaminophen 325 Mg Tablet PO 06/24/24 21:51 Q6H PRN PAIN SCALE 1-3 (mild Hydrocodone Bitart/Acetaminophen 1 tab 05/25/24 21:52 Hydrocodone/Apap 5/325 Tablet PO 05/30/24 21:51 Q4HR PRN PAIN SCALE 4-6 (Moderate Albuterol 2.5 mg 05/25/24 21:52 Albuterol Rt 2.5 Mg/0.5 Ml Nebu INH 06/24/24 21:51 Q2HR PRN SHORTNESS OF BREATH OR WHEEZE Artificial Tears 0 drop 05/28/24 08:03 05/28/24 08:16 Artificial Tears 225 Drop/15 Ml Btl BOTH EYES 06/27/24 08:02 1 drops PRN PRN Administration TO KEEP EYES MOIST Dextrose 25 ml 05/25/24 22:07 Dextrose 50%-Water Inj 50 Ml Syringe IV 06/24/24 22:06 Q15MIN PRN BG 50-70 responsive npo pt Dextrose 50 ml 05/25/24 22:07 Dextrose 50%-Water Inj 50 Ml Syringe IV 06/24/24 22:06 Q15MIN PRN BG <50 OR BG <70 & pt unresponsive Fluconazole 400 mg 05/26/24 09:00 05/28/24 08:16 Fluconazole 100 Mg Tablet PO 06/02/24 08:59 400 mg QDAY PENG Administration Glucagon 1 mg 05/25/24 22:07 Glucagon Inj 1 Mg Vial IM Q15MIN PRN BG <70, and no IV access Hydralazine HCl 10 mg 05/25/24 22:11 Hydralazine Inj 20 Mg/Ml Vial IV 06/24/24 22:10 Q2H PRN SBP >180 Ceftriaxone Sodium 1,000 mg/ 50 mls @ 100 mls/hr 05/28/24 07:50 05/28/24 08:17 Sodium Chloride IV 06/04/24 07:49 100 mls/hr QDAY PENG Administration Insulin Glargine 5 unit 05/26/24 09:00 05/28/24 08:16 Insulin Glargine (Lantus) 5 Unit/0.05 Ml (Per 5 Units) SC 06/25/24 08:59 5 unit QDAY PENG Administration Insulin Human Lispro 0 unit 05/26/24 17:00 05/28/24 11:24 Insulin Lispro (Admelog) 1 Unit/0.01 Ml Unit SC 06/25/24 00:00 1 unit ACHS PENG Administration Protocol Ondansetron HCl 4 mg 05/25/24 21:52 Ondansetron Inj 2 Mg/Ml Inj 2 Ml IV 06/24/24 21:51 Q6H PRN NAUSEA OR VOMITING Protocol Pantoprazole Sodium 40 mg 05/27/24 09:00 05/28/24 08:16 Pantoprazole Inj 40 Mg Vial IVP 06/26/24 08:59 40 mg QDAY PENG Administration Polyethylene Glycol 17 gm 05/28/24 14:30 Polyethylene Glycol 17 Gm Packet PO 06/27/24 14:29 QDAY PENG Sennosides 1 tab 05/25/24 21:52 05/28/24 08:16 Senna Tablet PO 06/24/24 21:51 1 tab BID PRN Administration CONSTIPATION Protocol Sodium Chloride 3 ml 05/25/24 21:52 Sodium Chloride Rt Nila 0.9% 3 Ml Nebu INH 06/24/24 21:51 PRN PRN SOLN Plan A 68-year-old male patient with reportedly history of depression, dementia, pulmonary cocci with cavitary lesion, 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 #Hemoptysis, resolved #Community acquired pneumonia, improving #Cavitary lesion of the left lung #History of pulmonary coccidiomycosis #Sepsis most likely secondary to pneumonia, resolved Patient has history of pulmonary coccidiomycosis and cavitary lesion since 2019, presented with questionable hematemesis versus hemoptysis. patient was noticed to be febrile with body temperature of 102.1, heart rate of 110, and blood pressure of 149/78, he was saturating 94% on room air. His labs showed WBC of 15, hemoglobin of 13, serum creatinine is 1.2 of note his serum creatinine in 2020 is 0.6, lactic acid on presentation was 2.7 however it went down to 1.7, Pro-Moncho 0.9, COVID and influenza virus screening came back negative. His chest x-ray showed cavitary lesion and pneumonic infiltration. In review of the patient's chart we noticed that in [address] scan of the chest showed 3.5 cm with a cavitary lesion most likely secondary to cocci and he was prescribed fluconazole since that time. Also noticed that he has previous Abdominal CT scan in 2020 which showed multiple cystic lesions of the liver. On repeat of CT scan today which showed that the cavitary lesion at this time has mass component however still similar in size associated with pneumonia. Review of his serology showed positive cocci IgG in 2019. Tumor markers are negative, quantiferon, Afbs ardered. Plan: ? Isolation precautions ? Blood culture negative after 48 hours, urine cultures showed mixed culture, most likely contaminated ? Ceftriaxone 1 g qday ? MRSA screening pending ? Legionella screening antigen pending ? QuantiFERON test sent - AFPs ordered ? Aspiration precautions ? 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 Patient was explained the benefits and risks of the procedure and he decided to proceed with it. Plan: - IR LP pending #History of cystic lesions of the liver - accidental finding Family provided complex history mentioned that the patient started to cough and then vomited and coughed blood. They denied any history of liver disease in the past, denied any change of color of the stool and denied any history of liver disease. Previous CT scan showed multiple cystic lesions of the liver in 2020. At this time he is hemodynamically stable. Will continue to monitor his CBC regularly Plan ? Daily CBC ? Stool occult blood to rule out GIB ? Abdominal ultrasound unremarkable for acute pathology #LISE most likely prerenal, resolving Patient on presentation was septic, lactic acid was 2.7, his serum creatinine last was in 2020 and it was 0.6. Most likely the patient has prerenal LISE secondary to decreased oral intake and vomiting versus renal cause secondary to sepsis 05/26: creatinine 1.0, BUN 16. Plan ? Continue to monitor kidney function daily ? Avoid nephrotoxic medications #Right leg DVT ruled out On examination patient was noticed to have right lower extremity edema +1 to +2 however trace edema on the left leg. His BNP is 20 and he has no history of heart failure. Plan ? Doppler venous ultrasound for the right lower extremity #History of diabetes mellitus Plan - insulin sliding scale History of hypertension Plan - hold antihypertensives due to LISE for now #History of dementia #History of depression Plan ? Resume home medications after med reconciliation Health maintenance: FEN: carbohydrate consistent DVT prophylaxis: SCDs GI prophylaxis: pantoprazole IV Dispo: telemetry CODE STATUS: Full code Plan of care discussed with attending Dr. Lugo, PGY-[address] Upton and PGY-[address] Fritz. Devorah Goldstein MD, PGY 1. -- ATTESTATION: I saw and examined the patient this morning, and I agree with current management stated by the resident. Will continue to monitor patient during their stay. 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 Patient denied any weight loss fevers chills night sweats or recent travel. Patient was admitted to rule out TB and ID was consulted who recommended possible further workup for disseminated cocci to the meninges. Patient was informed about the risks and benefits of a lumbar puncture and patient asked for time to think about the procedure. Patient is currently on treatment for cocci and we are ruling out possible superimposed infections. Patient has decided on doing an LP. A CT scan of the head will be performed prior to LP. Disclaimer: Despite multiple revisions, due to the dictation software being used, the document bellow may not be free of grammatical errors including phonetic/typographic errors. However, this does not deter from our commitment to providing health care in the patient's best interest in mind. Dr. Gerard Fritz, PGY-3 Attending Provider Attestation/Addendum I have examined the patient, reviewed labs and imaging findings, discussed the case with the resident(s), and reviewed entered orders. I agree with the plan of care as outlined in this note, with these additional summaries/recommendations: Patient seen at bedside. No acute overnight events. Patient is alert and oriented x 3. AFBs x 3 and quantiferon sent out and pending for cavitary lesion. 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 Infectious disease consulted who recommended possibly obtaining LP. Discussed lumbar puncture with patient and he would like to proceed with lumbar puncture. We will order standard fluid analysis as was cocci studies. Continue high-dose fluconazole for now. Continue insulin sliding scale for diabetes mellitus type 2. Outpatient follow-up for liver cyst. Continue home antihypertensives as needed. Dr. Parish MD
[2024-05-28] MEDS: POLYETHYLENE GLYCOL 17 GM PACKET PO (17:22)
[2024-05-29] VITALS (7 sets, daily range): BP systolic 124–139; BP diastolic 74–81; PULSE 61–78; RESP 12–20; TEMP 36.3–36.5; O2SAT 94–97; BMI 30.5
[2024-05-29 06:02] LABS: Basophils # (Auto) 0.1 Thou/mm3 (0.0-0.2); Basophils % (Auto) 1 % (0-2.5); Eosinophils # (Auto) 0.4 Thou/mm3 (0.0-0.5); Eosinophils % (Auto) 5 % (0-10); Hematocrit 36.1 % (41.0-53.0); Hemoglobin 12.1 g/dL (13.5-16.0); Immature Granulocytes % (Auto) 1 % (0-0); Immature Granulocytes Auto 0.04 Thou/mm3 (0.00-0.00); Lymphocytes # (Auto) 2.1 Thou/mm3 (1.0-4.8); Lymphocytes % (Auto) 25 % (10-50); Mean Corpuscular HGB Conc 33.5 g/dl (31.0-37.0); Mean Corpuscular Hemoglobin 30.6 pg (25.0-35.0); Mean Corpuscular Volume 91 fL (80-100); Monocytes # (Auto) 0.7 Thou/mm3 (0.0-0.8); Monocytes % (Auto) 8 % (0-12); Neutrophils # (Auto) 5.2 Thou/mm3 (1.8-7.7); Neutrophils % (Auto) 61 % (37-80); Nucleated Red Blood Cell % 0 /100 WBC (0); Platelet Count 230 Thou/mm3 (140-440); RDW Standard Deviation 41.4 fL (35.1-43.9); Red Blood Count 3.95 Miln/mm3 (4.50-5.90); White Blood Count 8.5 Thou/mm3 (3.8-10.6)
[2024-05-29 06:23] LABS: Anion Gap 8 (7-16); BUN/Creatinine Ratio 22 Ratio (12-20); Blood Urea Nitrogen 22 mg/dL (9-23); Calcium 9.3 mg/dL (8.3-10.6); Carbon Dioxide 27.1 mMol/L (20.0-31.0); Chloride 105 mMol/L (98-107); Estimated Creatinine Clearance 67.9 mL/min (>60); Glucose 150 mg/dL (74-106); Osmolality,Calculated 285 (275-295); Potassium 4.2 mMol/L (3.4-5.1); Sodium 140 mMol/L (136-145); eGFR > 60 See Note
--- NOTE | 2024-05-29 07:48 | PC.NURSE ---
Dr. Upton aware of AFB and QFT results.
--- NOTE | 2024-05-29 08:00 | XR_ITS ---
Examination: Attempted diagnostic lumbar puncture Fluoroscopy AP lumbar spine 3 views Exam date and time: 2024 1321 hrs. Indications: Altered mental status this week. Technique And Findings: Informed consent provided. Timeout performed. Skin prepped over the lower back and sterile drape applied hand hygiene 1% lidocaine administered for local anesthesia Lumbar puncture at the L5-S1 level with very minimal spinal fluid, not sufficient for collection Fluoroscopy 1 minute radiation dose 32.41 milligray 3 spot fluoroscopic films of the lumbar spine Impression: Lumbar puncture at the L5-S1 level with minimal spinal fluid, not sufficient for collection
--- NOTE | 2024-05-29 08:03 | PC.NURSE ---
Dr. Upton aware that pt. cannot come off precautions until mycobaterial cultures are back, despite Acid stain being negative. Per Daisy GALVIN Nurse Hat Cutter.
[2024-05-29] MEDS: POLYETHYLENE GLYCOL 17 GM PACKET PO (08:27)
[2024-05-29] MEDS: FLUCONAZOLE 100 MG TABLET 400 MG PO (08:27)
[2024-05-29] MEDS: cefTRIAXone 1,000 MG in SODIUM CHLORIDE 0.9% (Popper) 50 ML 100 MG IV (08:27)
[2024-05-29] MEDS: PANTOPRAZOLE INJ 40 MG VIAL IVP (08:27)
[2024-05-29] MEDS: INSULIN GLARGINE (Lantus) 5 UNIT/0.05 ML (PER 5 UNITS) SC (08:28)
--- NOTE | 2024-05-29 09:17 | PC.SS ---
Follow up note: LP today. Waiting for AFB cultures to come back. Pt will return home upon dc.
--- NOTE | 2024-05-29 10:15 | PD.RESPRO ---
Documentation for date of: 05/29/24 Subjective Subjective Interval history: Patient was seen and examined by the bedside. Overnight patient had an episode of cough with red blood, amount is less than a teaspoon. Saturates well on 1L NC. LP was unsuccessful for IR today. Dr. Rider was contacted for LP. Also pending the rest of Afbs. Exam Vital Signs Temp Pulse Resp BP Pulse Ox O2 Del Method O2 Flow Rate 97.7 F 68 18 126/79 96 Nasal Cannula 1 05/29/24 04:00 05/29/24 07:02 05/29/24 07:02 05/29/24 04:00 05/29/24 07:02 05/29/24 04:00 05/29/24 07:02 Narrative Exam Physical Exam General: Awake and in no acute distress. Conversational and non-toxic appearing. HEENT: Normocephalic, atraumatic, mucous membranes moist. Heart: Regular rate and rhythm, no murmurs. Lungs: Clear to auscultation with no wheezing or crackles. Abdomen: Soft, nondistended, nontender, positive bowel sounds. ?No guarding or rebound tenderness. Neurologic: Alert and oriented x3, no gross neurological deficit, and patient able to move all 4 extremities. Extremities: No edema. Skin: No rash or ecchymoses. Objective Labs 05/30/24 04:44 05/30/24 04:44 Labs: Laboratory Results - last 24 hr 05/26/24 05/26/24 05/26/24 05:42 13:44 21:50 WBC RBC Hgb Hct MCV MCH MCHC RDW Std Deviation Plt Count Neut % (Auto) Lymph % (Auto) [place] % (Auto) Eos % (Auto) Baso % (Auto) Neut # (Auto) Lymph # (Auto) [place] # (Auto) Eos # (Auto) Baso # (Auto) Immature Gran # (Auto) Absolute Nucleated RBC Immature Gran % Nucleated RBC % Sodium Potassium Chloride Carbon Dioxide Anion Gap BUN Creatinine Estim Creat Clear Calc eGFR BUN/Creatinine Ratio Glucose Calculated Osmolality Calcium Mycobacterial Culture See Nov Rpt See Nov Rpt TB Test (QFT) See Nov Rpt 05/27/24 05/29/24 05:50 05:25 WBC 8.5 RBC 3.95 L Hgb 12.1 L Hct 36.1 L MCV 91 MCH 30.6 MCHC 33.5 RDW Std Deviation 41.4 Plt Count 230 Neut % (Auto) 61 Lymph % (Auto) 25 [place] % (Auto) 8 Eos % (Auto) 5 Baso % (Auto) 1 Neut # (Auto) 5.2 Lymph # (Auto) 2.1 [place] # (Auto) 0.7 Eos # (Auto) 0.4 Baso # (Auto) 0.1 Immature Gran # (Auto) 0.04 H Absolute Nucleated RBC 0.00 Immature Gran % 1 H Nucleated RBC % 0 Sodium 140 Potassium 4.2 Chloride 105 Carbon Dioxide 27.1 Anion Gap 8 BUN 22 Creatinine 1.0 Estim Creat Clear Calc 67.9 eGFR > 60 BUN/Creatinine Ratio 22 H Glucose 150 H Calculated Osmolality 285 Calcium 9.3 Mycobacterial Culture See Sep Rpt TB Test (QFT) Quality Measures Quality Measures VTE prophylaxis Advance care planning discussed with:: other Assessment & Plan Assessment Current Active Medications: Generic Name Dose Route Start Last Admin Trade Name Freq PRN Reason Stop Dose Admin Acetaminophen 650 mg 05/25/24 21:52 Acetaminophen 325 Mg Tablet PO 06/24/24 21:51 Q6H PRN Fever >101.5 Acetaminophen 650 mg 05/25/24 21:52 Acetaminophen 325 Mg Tablet PO 06/24/24 21:51 Q6H PRN PAIN SCALE 1-3 (mild Hydrocodone Bitart/Acetaminophen 1 tab 05/25/24 21:52 Hydrocodone/Apap 5/325 Tablet PO 05/30/24 21:51 Q4HR PRN PAIN SCALE 4-6 (Moderate Albuterol 2.5 mg 05/25/24 21:52 Albuterol Rt 2.5 Mg/0.5 Ml Nebu INH 06/24/24 21:51 Q2HR PRN SHORTNESS OF BREATH OR WHEEZE Artificial Tears 0 drop 05/28/24 08:03 05/28/24 08:16 Artificial Tears 225 Drop/15 Ml Btl BOTH EYES 06/27/24 08:02 1 drops PRN PRN Administration TO KEEP EYES MOIST Dextrose 25 ml 05/25/24 22:07 Dextrose 50%-Water Inj 50 Ml Syringe IV 06/24/24 22:06 Q15MIN PRN BG 50-70 responsive npo pt Dextrose 50 ml 05/25/24 22:07 Dextrose 50%-Water Inj 50 Ml Syringe IV 06/24/24 22:06 Q15MIN PRN BG <50 OR BG <70 & pt unresponsive Fluconazole 400 mg 05/26/24 09:00 05/29/24 08:27 Fluconazole 100 Mg Tablet PO 06/02/24 08:59 400 mg QDAY PENG Administration Glucagon 1 mg 05/25/24 22:07 Glucagon Inj 1 Mg Vial IM Q15MIN PRN BG <70, and no IV access Hydralazine HCl 10 mg 05/25/24 22:11 Hydralazine Inj 20 Mg/Ml Vial IV 06/24/24 22:10 Q2H PRN SBP >180 Ceftriaxone Sodium 1,000 mg/ 50 mls @ 100 mls/hr 05/28/24 07:50 05/29/24 08:27 Sodium Chloride IV 06/04/24 07:49 100 mls/hr QDAY PENG Administration Insulin Glargine 5 unit 05/26/24 09:00 05/29/24 08:28 Insulin Glargine (Lantus) 5 Unit/0.05 Ml (Per 5 Units) SC 06/25/24 08:59 5 unit QDAY PENG Administration Insulin Human Lispro 0 unit 05/26/24 17:00 05/29/24 07:07 Insulin Lispro (Admelog) 1 Unit/0.01 Ml Unit SC 06/25/24 00:00 Not Given ACHS PENG Protocol Ondansetron HCl 4 mg 05/25/24 21:52 Ondansetron Inj 2 Mg/Ml Inj 2 Ml IV 06/24/24 21:51 Q6H PRN NAUSEA OR VOMITING Protocol Pantoprazole Sodium 40 mg 05/27/24 09:00 05/29/24 08:27 Pantoprazole Inj 40 Mg Vial IVP 06/26/24 08:59 40 mg QDAY PENG Administration Polyethylene Glycol 17 gm 05/28/24 14:30 05/29/24 08:27 Polyethylene Glycol 17 Gm Packet PO 06/27/24 14:29 17 gm QDAY PENG Administration Sennosides 1 tab 05/25/24 21:52 05/28/24 08:16 Senna Tablet PO 06/24/24 21:51 1 tab BID PRN Administration CONSTIPATION Protocol Sodium Chloride 3 ml 05/25/24 21:52 Sodium Chloride Rt [place] 0.9% 3 Ml Nebu INH 06/24/24 21:51 PRN PRN SOLN Plan A 68-year-old male patient with reportedly history of depression, dementia, pulmonary cocci with cavitary lesion, 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 #Hemoptysis, resolved #Community acquired pneumonia, improving #Cavitary lesion of the left lung #History of pulmonary coccidiomycosis #Sepsis most likely secondary to pneumonia, resolved Patient has history of pulmonary coccidiomycosis and cavitary lesion since 2019, presented with questionable hematemesis versus hemoptysis. patient was noticed to be febrile with body temperature of 102.1, heart rate of 110, and blood pressure of 149/78, he was saturating 94% on room air. His labs showed WBC of 15, hemoglobin of 13, serum creatinine is 1.2 of note his serum creatinine in 2020 is 0.6, lactic acid on presentation was 2.7 however it went down to 1.7, Pro-Moncho 0.9, COVID and influenza virus screening came back negative. His chest x-ray showed cavitary lesion and pneumonic infiltration. In review of the patient's chart we noticed that in [address] scan of the chest showed 3.5 cm with a cavitary lesion most likely secondary to cocci and he was prescribed fluconazole since that time. Also noticed that he has previous Abdominal CT scan in 2020 which showed multiple cystic lesions of the liver. On repeat of CT scan today which showed that the cavitary lesion at this time has mass component however still similar in size associated with pneumonia. Review of his serology showed positive cocci IgG in 2019. Tumor markers are negative, quantiferon, Afbs ardered. Plan: ? Isolation precautions ? Blood culture negative after 48 hours, urine cultures showed mixed culture, most likely contaminated ? Ceftriaxone 1 g qday ? MRSA screening pending ? Legionella screening antigen pending ? QuantiFERON test sent - AFPs ordered ? Aspiration precautions ? 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 Patient was explained the benefits and risks of the procedure and he decided to proceed with it. Plan: - LP pending #History of cystic lesions of the liver - accidental finding Family provided complex history mentioned that the patient started to cough and then vomited and coughed blood. They denied any history of liver disease in the past, denied any change of color of the stool and denied any history of liver disease. Previous CT scan showed multiple cystic lesions of the liver in 2020. At this time he is hemodynamically stable. Will continue to monitor his CBC regularly Plan ? Daily CBC ? Stool occult blood to rule out GIB ? Abdominal ultrasound unremarkable for acute pathology #LISE most likely prerenal, resolving Patient on presentation was septic, lactic acid was 2.7, his serum creatinine last was in 2020 and it was 0.6. Most likely the patient has prerenal LISE secondary to decreased oral intake and vomiting versus renal cause secondary to sepsis 05/26: creatinine 1.0, BUN 16. Plan ? Continue to monitor kidney function daily ? Avoid nephrotoxic medications #Right leg DVT ruled out On examination patient was noticed to have right lower extremity edema +1 to +2 however trace edema on the left leg. His BNP is 20 and he has no history of heart failure. Doppler venous ultrasound for the right lower extremity negative for DVT. #History of diabetes mellitus Plan - insulin sliding scale History of hypertension Plan - hold antihypertensives due to LISE for now #History of dementia #History of depression Plan ? Resume home medications after med reconciliation Health maintenance: FEN: carbohydrate consistent DVT prophylaxis: SCDs GI prophylaxis: pantoprazole IV Dispo: telemetry CODE STATUS: Full code Plan of care discussed with attending Dr. Lugo, PGY-[address] Upton and PGY-[address] Fritz. Devorah Goldstein MD, PGY 1. --- ATTESTATION: I saw and examined the patient this morning, and I agree with current management stated by the resident. Will continue to monitor patient during their stay. 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 Patient has been previously diagnosed with cocci pneumonia. And he was stopped on medication a couple of months ago and attempts to determine his cocci antibody titers and he was resumed on fluconazole as they were elevated. Patient has had 2 more episodes of hemoptysis that are less than a teaspoonful when he coughs however he is feeling well and saturating fine on room air. Due to the concern of the recurrent hemoptysis we are ruling out TB and smear has been negative so far as well QuantiFERON. Due to previous questionable cocci meningitis and clinical suspicion for dementia as patient is somewhat slow in answering questions but he does answer them accurately, LP was recommended by infectious disease doctor to rule out cocci meningitis. An attempt was made on 05/29/2024 however not enough spinal fluid was obtained. Will attempt LP again today. Patient is also currently receiving antibiotics for possible superimposed pneumonia. Disclaimer: Despite multiple revisions, due to the dictation software being used, the document bellow may not be free of grammatical errors including phonetic/typographic errors. However, this does not deter from our commitment to providing health care in the patient's best interest in mind. Dr. Gerard Fritz, PGY-3 Attending Provider Attestation/Addendum I have examined the patient, reviewed labs and imaging findings, discussed the case with the resident(s), and reviewed entered orders. I agree with the plan of care as outlined in this note, with these additional summaries/recommendations: Patient seen at bedside. Patient endorses 1 episode of blood-tinged sputum overnight. Today at bedside patient has no acute complaints. Quantiferon returned negative although we will await negative AFBs x 3 before active tuberculosis cannot be definitively ruled out. 1 AFB returned negative and awaiting 2 more results. Patient completed CT head and will go for lumbar puncture today to evaluate for history of cocci meningitis. Continue high-dose fluconazole for now. Continue insulin sliding scale for diabetes mellitus 2. Outpatient follow-up for liver cyst. Repeat hematology and chemistry panel in AM. All questions answered to satisfaction. Dr. Parish MD
[2024-05-29] MEDS: Milk Of Magnesia Susp 30 ML UDC PO (11:36)
--- NOTE | 2024-05-29 14:14 | PC.NURSE ---
Cruz BLAKELY notified RN that LP was unsuccessful. Dr. Won ortiz.
--- NOTE | 2024-05-29 14:28 | PC.IP ---
Pt. has 3 negative AFBs sputum test and a negative MTB NAAT results in [facility] Inbox. Kumar Cheney notified. Pt. can be removed from Airborne Precautions.
--- NOTE | 2024-05-29 14:51 | PC.NURSE ---
Per Christi GALVIN RN pt. can be removed from precautions as [facility] site provides information that mycobacterial culture were negative so pt. can be removed from isolation. NITESH Tierney inquires if pt. needs to be on isolation for R/O cocci meningitis and per Christi DOWLING Per CDC pt. needs to be on standard precautions. No other measures. Dr. Upton aware.
[2024-05-29] MEDS: INSULIN LISPRO (AdmeLOG) 1 UNIT/0.01 ML UNIT SC ×2 (17:20→20:48)
--- NOTE | 2024-05-29 19:12 | PC.NURSE ---
Rounded on patient, patient is comfortably laying in bed having dinner with at bedside with patient. Patient had a complaint of minimal pain in the back. Nurse asked patient if he would like anything for the pain to which the patient replied no. Also, reminded patient that we need a stool sample. Other than the complaint of minimal pain, patient is showing no sign of distress.
[2024-05-30] VITALS (8 sets, daily range): BP systolic 134–163; BP diastolic 77–94; PULSE 67–85; RESP 12–23; TEMP 36.1–36.4; O2SAT 92–98; BMI 30.1
[2024-05-30] MEDS: Artificial Tears 225 DROP/15 ML BTL BOTH EYES (00:36)
[2024-05-30 05:17] LABS: Basophils # (Auto) 0.1 Thou/mm3 (0.0-0.2); Basophils % (Auto) 1 % (0-2.5); Eosinophils # (Auto) 0.3 Thou/mm3 (0.0-0.5); Eosinophils % (Auto) 3 % (0-10); Hematocrit 37.7 % (41.0-53.0); Hemoglobin 12.4 g/dL (13.5-16.0); Immature Granulocytes % (Auto) 1 % (0-0); Immature Granulocytes Auto 0.07 Thou/mm3 (0.00-0.00); Lymphocytes # (Auto) 2.3 Thou/mm3 (1.0-4.8); Lymphocytes % (Auto) 24 % (10-50); Mean Corpuscular HGB Conc 32.9 g/dl (31.0-37.0); Mean Corpuscular Hemoglobin 29.6 pg (25.0-35.0); Mean Corpuscular Volume 90 fL (80-100); Monocytes # (Auto) 0.7 Thou/mm3 (0.0-0.8); Monocytes % (Auto) 7 % (0-12); Neutrophils # (Auto) 6.2 Thou/mm3 (1.8-7.7); Neutrophils % (Auto) 64 % (37-80); Nucleated Red Blood Cell % 0 /100 WBC (0); Platelet Count 253 Thou/mm3 (140-440); RDW Standard Deviation 41.2 fL (35.1-43.9); Red Blood Count 4.19 Miln/mm3 (4.50-5.90); White Blood Count 9.6 Thou/mm3 (3.8-10.6)
[2024-05-30 05:34] LABS: Anion Gap 7 (7-16); BUN/Creatinine Ratio 23 Ratio (12-20); Blood Urea Nitrogen 23 mg/dL (9-23); Calcium 9.5 mg/dL (8.3-10.6); Carbon Dioxide 28.7 mMol/L (20.0-31.0); Chloride 103 mMol/L (98-107); Estimated Creatinine Clearance 67.8 mL/min (>60); Glucose 165 mg/dL (74-106); Osmolality,Calculated 285 (275-295); Potassium 4.4 mMol/L (3.4-5.1); Sodium 139 mMol/L (136-145); eGFR > 60 See Note
[2024-05-30] MEDS: cefTRIAXone 1,000 MG in SODIUM CHLORIDE 0.9% (Popper) 50 ML 100 MG IV (09:24)
[2024-05-30] MEDS: PANTOPRAZOLE INJ 40 MG VIAL IVP (09:25)
[2024-05-30] MEDS: INSULIN GLARGINE (Lantus) 5 UNIT/0.05 ML (PER 5 UNITS) SC (09:27)
[2024-05-30] MEDS: FLUCONAZOLE 100 MG TABLET 400 MG PO (09:28)
[2024-05-30] MEDS: LOSARTAN POTASSIUM 25 MG TABLET 50 MG PO (09:28)
[2024-05-30] MEDS: POLYETHYLENE GLYCOL 17 GM PACKET PO (09:28)
--- NOTE | 2024-05-30 09:29 | PD.IDPROG ---
Subjective Subjective Interval history: got a late call from health dept, all afb's neg there, so this is likely a cavity of other origin. prior pos cocci noted in 2020. LP pending. dementia can be a presenting manifestation of cocci. so be sure that cocci ID and cf sent from [facility] Exam Vital Signs Temp Pulse Resp BP Pulse Ox O2 Del Method O2 Flow Rate 97.2 F 72 15 138/94 H 92 L Nasal Cannula 1 05/30/24 08:00 05/30/24 09:28 05/30/24 08:00 05/30/24 09:28 05/30/24 08:00 05/30/24 04:00 05/30/24 08:00 Narrative Exam awake , alert. dementia hx noted. no rash or skin lesions. current cocci pending at [facility]. I called them. no answer. left message. Objective - Internal Medicine Labs 05/30/24 04:44 05/30/24 04:44 Labs: Laboratory Results - last 24 hr 05/30/24 04:44 WBC 9.6 RBC 4.19 L Hgb 12.4 L Hct 37.7 L MCV 90 MCH 29.6 MCHC 32.9 RDW Std Deviation 41.2 Plt Count 253 Neut % (Auto) 64 Lymph % (Auto) 24 [place] % (Auto) 7 Eos % (Auto) 3 Baso % (Auto) 1 Neut # (Auto) 6.2 Lymph # (Auto) 2.3 [place] # (Auto) 0.7 Eos # (Auto) 0.3 Baso # (Auto) 0.1 Immature Gran # (Auto) 0.07 H Absolute Nucleated RBC 0.00 Immature Gran % 1 H Nucleated RBC % 0 Sodium 139 Potassium 4.4 Chloride 103 Carbon Dioxide 28.7 Anion Gap 7 BUN 23 Creatinine 1.0 Estim Creat Clear Calc 67.8 eGFR > 60 BUN/Creatinine Ratio 23 H Glucose 165 H Calculated Osmolality 285 Calcium 9.5 Assessment & Plan A&P Narrative hx of dementia. will order some w/u. if afb pos, may have had exposure elsewhere. prior afb neg in 2020 and neg again by verbal from health dept on sun. prior cocci noted. 1:32. rx ok as repeat titer pending. last recorded test in [facility] was in 2020. was neg in 2019 has not had f/u on the cocci as best we can tell. pos 2018 noted. LP unsuccessful so repeat to be attempted today changed rocephin to cefuroxime as he does not clinically seem to have bacterial meningitis. will see again on sunday. await afb's and cocci. 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 Time Spent With Patient Time: Total time spent is greater than 50% in coordination of care (as documented) at patient's floor/unit and/or counseling patient:
--- NOTE | 2024-05-30 09:41 | PD.RESPRO ---
Documentation for date of: 05/30/24 Subjective Subjective Interval history: Patient was seen and examined by the bedside. No acute overnight events. Patient is feeling well. Had an LP done today, CSF was sent for cocci, VDRL serology, cell count. AFBs came back negative three times. PAtient has been cleared from airborne precautions. Spinal tap was traumatic and CSF was bloody, so cell count showed high glucose and protein, [place] [address], most likely due to blood. Exam Vital Signs Temp Pulse Resp BP Pulse Ox O2 Del Method O2 Flow Rate 97.2 F 72 15 138/94 H 92 L Nasal Cannula 1 05/30/24 08:00 05/30/24 09:28 05/30/24 08:00 05/30/24 09:28 05/30/24 08:00 05/30/24 04:00 05/30/24 08:00 Narrative Exam Physical Exam General: Awake and in no acute distress. Conversational and non-toxic appearing. HEENT: Normocephalic, atraumatic, mucous membranes moist. Heart: Regular rate and rhythm, no murmurs. Lungs: Clear to auscultation with no wheezing or crackles. Abdomen: Soft, nondistended, nontender, positive bowel sounds. ?No guarding or rebound tenderness. Neurologic: Alert and oriented x3, no gross neurological deficit, and patient able to move all 4 extremities. Extremities: No edema. Skin: No rash or ecchymoses. Objective Labs 05/31/24 04:43 05/31/24 04:43 Labs: Laboratory Results - last 24 hr 05/30/24 04:44 WBC 9.6 RBC 4.19 L Hgb 12.4 L Hct 37.7 L MCV 90 MCH 29.6 MCHC 32.9 RDW Std Deviation 41.2 Plt Count 253 Neut % (Auto) 64 Lymph % (Auto) 24 [place] % (Auto) 7 Eos % (Auto) 3 Baso % (Auto) 1 Neut # (Auto) 6.2 Lymph # (Auto) 2.3 [place] # (Auto) 0.7 Eos # (Auto) 0.3 Baso # (Auto) 0.1 Immature Gran # (Auto) 0.07 H Absolute Nucleated RBC 0.00 Immature Gran % 1 H Nucleated RBC % 0 Sodium 139 Potassium 4.4 Chloride 103 Carbon Dioxide 28.7 Anion Gap 7 BUN 23 Creatinine 1.0 Estim Creat Clear Calc 67.8 eGFR > 60 BUN/Creatinine Ratio 23 H Glucose 165 H Calculated Osmolality 285 Calcium 9.5 Quality Measures Quality Measures VTE prophylaxis Advance care planning discussed with:: other Assessment & Plan Assessment Current Active Medications: Generic Name Dose Route Start Last Admin Trade Name Freq PRN Reason Stop Dose Admin Acetaminophen 650 mg 05/25/24 21:52 Acetaminophen 325 Mg Tablet PO 06/24/24 21:51 Q6H PRN Fever >101.5 Acetaminophen 650 mg 05/25/24 21:52 Acetaminophen 325 Mg Tablet PO 06/24/24 21:51 Q6H PRN PAIN SCALE 1-3 (mild Hydrocodone Bitart/Acetaminophen 1 tab 05/25/24 21:52 Hydrocodone/Apap 5/325 Tablet PO 05/30/24 21:51 Q4HR PRN PAIN SCALE 4-6 (Moderate Albuterol 2.5 mg 05/25/24 21:52 Albuterol Rt 2.5 Mg/0.5 Ml Nebu INH 06/24/24 21:51 Q2HR PRN SHORTNESS OF BREATH OR WHEEZE Artificial Tears 0 drop 05/28/24 08:03 05/30/24 00:36 Artificial Tears 225 Drop/15 Ml Btl BOTH EYES 06/27/24 08:02 1 drops PRN PRN Administration TO KEEP EYES MOIST Cefuroxime Axetil 500 mg 05/30/24 21:00 Cefuroxime Axetil 250 Mg Tablet PO 06/02/24 12:00 BID PENG Dextrose 25 ml 05/25/24 22:07 Dextrose 50%-Water Inj 50 Ml Syringe IV 06/24/24 22:06 Q15MIN PRN BG 50-70 responsive npo pt Dextrose 50 ml 05/25/24 22:07 Dextrose 50%-Water Inj 50 Ml Syringe IV 06/24/24 22:06 Q15MIN PRN BG <50 OR BG <70 & pt unresponsive Fluconazole 400 mg 05/26/24 09:00 05/30/24 09:28 Fluconazole 100 Mg Tablet PO 06/02/24 08:59 400 mg QDAY PENG Administration Glucagon 1 mg 05/25/24 22:07 Glucagon Inj 1 Mg Vial IM Q15MIN PRN BG <70, and no IV access Hydralazine HCl 10 mg 05/25/24 22:11 Hydralazine Inj 20 Mg/Ml Vial IV 06/24/24 22:10 Q2H PRN SBP >180 Insulin Glargine 5 unit 05/26/24 09:00 05/30/24 09:27 Insulin Glargine (Lantus) 5 Unit/0.05 Ml (Per 5 Units) SC 06/25/24 08:59 5 unit QDAY PENG Administration Insulin Human Lispro 0 unit 05/26/24 17:00 05/29/24 20:48 Insulin Lispro (Admelog) 1 Unit/0.01 Ml Unit SC 06/25/24 00:00 1 unit ACHS PENG Administration Protocol Losartan Potassium 50 mg 05/30/24 09:00 05/30/24 09:28 Losartan Potassium 25 Mg Tablet PO 06/29/24 08:59 50 mg QDAY PENG Administration Ondansetron HCl 4 mg 05/25/24 21:52 Ondansetron Inj 2 Mg/Ml Inj 2 Ml IV 06/24/24 21:51 Q6H PRN NAUSEA OR VOMITING Protocol Polyethylene Glycol 17 gm 05/28/24 14:30 05/30/24 09:28 Polyethylene Glycol 17 Gm Packet PO 06/27/24 14:29 17 gm QDAY PENG Administration Sennosides 1 tab 05/25/24 21:52 05/28/24 08:16 Senna Tablet PO 06/24/24 21:51 1 tab BID PRN Administration CONSTIPATION Protocol Sodium Chloride 3 ml 05/25/24 21:52 Sodium Chloride Rt [place]ila 0.9% 3 Ml Nebu INH 06/24/24 21:51 PRN PRN SOLN Plan A 68-year-old male patient with reportedly history of depression, dementia, pulmonary cocci with cavitary lesion, 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 #Hemoptysis, resolved #Community acquired pneumonia, improving #Cavitary lesion of the left lung #History of pulmonary coccidiomycosis #Sepsis most likely secondary to pneumonia, resolved Patient has history of pulmonary coccidiomycosis and cavitary lesion since 2019, presented with questionable hematemesis versus hemoptysis. patient was noticed to be febrile with body temperature of 102.1, heart rate of 110, and blood pressure of 149/78, he was saturating 94% on room air. His labs showed WBC of 15, hemoglobin of 13, serum creatinine is 1.2 of note his serum creatinine in 2020 is 0.6, lactic acid on presentation was 2.7 however it went down to 1.7, Pro-Moncho 0.9, COVID and influenza virus screening came back negative. His chest x-ray showed cavitary lesion and pneumonic infiltration. In review of the patient's chart we noticed that in [address] scan of the chest showed 3.5 cm with a cavitary lesion most likely secondary to cocci and he was prescribed fluconazole since that time. Also noticed that he has previous Abdominal CT scan in 2020 which showed multiple cystic lesions of the liver. On repeat of CT scan today which showed that the cavitary lesion at this time has mass component however still similar in size associated with pneumonia. Review of his serology showed positive cocci IgG in 2019. Tumor markers are negative, quantiferon, Afbs negative. Plan: ? Isolation precautions discontinued ? Blood culture negative after 48 hours, urine cultures showed mixed culture, most likely contaminated ? Cefuroxime 500 mg twice daily ? MRSA screening negative ? QuantiFERON test negative - AFPs negative ? Jon cocci serology pending ? 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 Patient was explained the benefits and risks of the procedure and he decided to proceed with it. Plan: - LP done, cocci serology pending ? Traumatic tap, but WBCs level is normal #History of cystic lesions of the liver - accidental finding Family provided complex history mentioned that the patient started to cough and then vomited and coughed blood. They denied any history of liver disease in the past, denied any change of color of the stool and denied any history of liver disease. Previous CT scan showed multiple cystic lesions of the liver in 2020. At this time he is hemodynamically stable. Will continue to monitor his CBC regularly Plan ? Daily CBC ? Stool occult blood to rule out GIB ? Abdominal ultrasound unremarkable for acute pathology #LISE most likely prerenal, resolving Patient on presentation was septic, lactic acid was 2.7, his serum creatinine last was in 2020 and it was 0.6. Most likely the patient has prerenal LISE secondary to decreased oral intake and vomiting versus renal cause secondary to sepsis 05/26: creatinine 1.0, BUN 16. Plan ? Continue to monitor kidney function daily ? Avoid nephrotoxic medications #Right leg DVT ruled out On examination patient was noticed to have right lower extremity edema +1 to +2 however trace edema on the left leg. His BNP is 20 and he has no history of heart failure. Doppler venous ultrasound for the right lower extremity negative for DVT. #History of diabetes mellitus Plan - insulin sliding scale History of hypertension Plan -Resumed home losartan 50 mg daily #History of dementia #History of depression Stable Health maintenance: FEN: carbohydrate consistent DVT prophylaxis: SCDs GI prophylaxis: pantoprazole IV Dispo: telemetry CODE STATUS: Full code Plan of care discussed with attending Dr. Lugo and PGY-[address] Fritz. Devorah Goldstein MD, PGY 1. ATTESTATION: I saw and examined the patient this morning, and I agree with current management stated by the resident. Will continue to monitor patient during their stay. 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 Patient has been previously diagnosed with cocci pneumonia. And he was stopped on medication a couple of months ago and attempts to determine his cocci antibody titers and he was resumed on fluconazole as they were elevated. Patient has had 2 more episodes of hemoptysis that are less than a teaspoonful when he coughs however he is feeling well and saturating fine on room air. Due to the concern of the recurrent hemoptysis we are ruling out TB and smear has been negative so far as well QuantiFERON. Due to previous questionable cocci meningitis and clinical suspicion for dementia as patient is somewhat slow in answering questions but he does answer them accurately, LP was recommended by infectious disease doctor to rule out cocci meningitis. An attempt was made on 05/29/2024 however not enough spinal fluid was obtained. LP was successful on 05/30/2024 and it showed elevated protein as well as glucose in the CSF. Cultures for cocci are pending. Patient is also currently receiving antibiotics for possible superimposed pneumonia. Disclaimer: Despite multiple revisions, due to the dictation software being used, the document bellow may not be free of grammatical errors including phonetic/typographic errors. However, this does not deter from our commitment to providing health care in the patient's best interest in mind. Dr. Gerard Fritz, PGY-3 Attending Provider Attestation/Addendum I have examined the patient, reviewed labs and imaging findings, discussed the case with the resident(s), and reviewed entered orders. I agree with the plan of care as outlined in this note, with these additional summaries/recommendations: Patient seen at bedside. No acute overnight events. Lumbar puncture was attempted yesterday although was unsuccessful. Neurology consulted and patient underwent successful lumbar puncture at bedside today. We will send cerebrospinal fluid for analysis with cocci, VDRL, and cell counts. We will monitor for post LP headache. Will continue high-dose fluconazole while awaiting CSF studies. Quantiferon returned negative. AFB is negative x 2 and awaiting third AFB before active tuberculosis can be ruled out. Continue insulin sliding scale for diabetes mellitus type 2. Outpatient follow-up for liver cyst. Repeat hematology and chemistry panel in AM. Dr. Parish MD
[2024-05-30 11:31] LABS: Coccid Serology, CF CSF (UCD)* See Sep Rpt
--- NOTE | 2024-05-30 11:53 | PC.SS ---
Follow up note: Waiting for cultures to be negative. LP still pending. Pt will return home upon dc.
[2024-05-30 12:16] LABS: CSF White Blood Cell 54 /cmm
[2024-05-30 12:18] LABS: CSF Cell Count Tube # Tube # 4
[2024-05-30 12:19] LABS: CSF Color Bloody (Colorless)
[2024-05-30 12:20] LABS: CSF Mononuclear 39 %
[2024-05-30 12:21] LABS: CSF Polynuclear WBC 61 %; CSF Red Blood Cell 24000 /cmm; CSF, Appearance Cloudy (Clear)
[2024-05-30 12:22] LABS: Glucose,CSF 90 mg/dL (40-70); Protein Total,CSF 69 mg/dL (8-32)
[2024-05-30 12:48] LABS: CSF Gram Stain Alert Gram Stain Completed
[2024-05-30] MEDS: cefuroxime axetiL 250 MG TABLET 500 MG PO (20:46)
[2024-05-30] MEDS: INSULIN LISPRO (AdmeLOG) 1 UNIT/0.01 ML UNIT SC (20:54)
--- NOTE | 2024-05-30 23:58 | PD.NEUROPROG ---
Documentation for date of: 05/30/24 Subjective Subjective Interval history: Patient was seen in telemetry today. Denies any headache dizziness nausea vomiting or weakness or paresthesias. He has been compliant on Diflucan. Exam - Neurology Vital Signs Temp Pulse Resp BP Pulse Ox O2 Del Method O2 Flow Rate 97.5 F 68 23 H 140/77 H 95 Room Air 1 05/30/24 20:00 05/30/24 20:00 05/30/24 20:00 05/30/24 20:00 05/30/24 20:00 05/30/24 20:00 05/30/24 08:00 Narrative Exam GENERAL APPEARANCE: Well hydrated, well-nourished in no acute distress. HEENT: Normocephalic, atraumatic, extraocular movements intact. Pupils: Equal reacting to light and accommodation NECK: Supple, no JVD or bruits. CARDIOVASULAR: Heart: S1, S2 heard, regular without S3-S4 or murmur no rubs or gallops. LUNGS/CHEST: Clear to auscultation bilaterally. No rails, rhonchi, or wheezing. Normal inspection. ABDOMEN: Soft, nontender, with normal bowel sounds. No pulsatile masses. No rebound, rigidity, or guarding. Normal inspection and palpation. EXTREMITIES: Normal inspection and palpation. No edema, clubbing or cyanosis. SKIN: Warm and dry without rashes. Normal inspection. MUSCULOSKELETAL: No cervical, thoracic, lumbar or midline bony tenderness. Normal inspection. NEURO: Alert, awake. Cranial nerves: II through XII grossly intact. Speech and language: nonverbal, able to follow simple commands. motor system: Tone and bulk: Normal: Strength: 5 out of 5 in all 4 extremities; No pronator drift noted. Deep tendon reflexes: 2+ bilaterally symmetrical. Plantar reflex: Downgoing bilaterally. Sensory system: Intact to pinprick sensation bilaterally. Coordination and gait: Could not be tested, no signs of meningeal irritation noted. PSYCHIATRIC: Normal mood and affect but limited Objective Labs 05/31/24 04:43 05/31/24 04:43 Labs: Laboratory Results - last 24 hr 05/30/24 05/30/24 04:44 10:41 WBC 9.6 RBC 4.19 L Hgb 12.4 L Hct 37.7 L MCV 90 MCH 29.6 MCHC 32.9 RDW Std Deviation 41.2 Plt Count 253 Neut % (Auto) 64 Lymph % (Auto) 24 [place] % (Auto) 7 Eos % (Auto) 3 Baso % (Auto) 1 Neut # (Auto) 6.2 Lymph # (Auto) 2.3 [place] # (Auto) 0.7 Eos # (Auto) 0.3 Baso # (Auto) 0.1 Immature Gran # (Auto) 0.07 H Absolute Nucleated RBC 0.00 Immature Gran % 1 H Nucleated RBC % 0 Sodium 139 Potassium 4.4 Chloride 103 Carbon Dioxide 28.7 Anion Gap 7 BUN 23 Creatinine 1.0 Estim Creat Clear Calc 67.8 eGFR > 60 BUN/Creatinine Ratio 23 H Glucose 165 H Calculated Osmolality 285 Calcium 9.5 CSF Appearance Cloudy A CSF Color Bloody A CSF WBC 54 CSF RBC 72311 CSF Cell Count Tube # Tube # 4 CSF Mononuclear WBCs 39 CSF Polynuclear WBCs 61 CSF Glucose 90 H CSF Total Protein 69 H Assessment & Plan Assessment and plan (1) Coccidioidomycosis: Status: Chronic Assessment and plan: Continue with Diflucan 400 mg a day Follow-up with the cocci serology and CSF when it becomes available to rule out meningitis/encephalitis (2) Benign essential hypertension: Status: Chronic Assessment and plan: Under control on losartan (3) Pulmonary cavitary lesion: Status: Chronic 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 Ruled out negative for TB (4) Dementia: Status: Chronic Assessment and plan: At baseline
--- NOTE | 2024-05-30 23:59 | PD.EVENT ---
Documentation for date of: 05/30/24
[2024-05-31] VITALS: BP 124/76; PULSE 67; PULSE 70; RESP 18; TEMP 36.3; O2SAT 93
[2024-05-31 04:00] VITALS: BP 162/109; PULSE 64; RESP 16; TEMP 36.3; O2SAT 97
[2024-05-31 05:51] LABS: Basophils # (Auto) 0.1 Thou/mm3 (0.0-0.2); Basophils % (Auto) 1 % (0-2.5); Eosinophils # (Auto) 0.4 Thou/mm3 (0.0-0.5); Eosinophils % (Auto) 4 % (0-10); Hematocrit 39.6 % (41.0-53.0); Immature Granulocytes % (Auto) 1 % (0-0); Immature Granulocytes Auto 0.11 Thou/mm3 (0.00-0.00); Lymphocytes # (Auto) 3.4 Thou/mm3 (1.0-4.8); Lymphocytes % (Auto) 32 % (10-50); Mean Corpuscular HGB Conc 32.8 g/dl (31.0-37.0); Mean Corpuscular Volume 92 fL (80-100); Monocytes # (Auto) 0.7 Thou/mm3 (0.0-0.8); Monocytes % (Auto) 7 % (0-12); Neutrophils # (Auto) 6.1 Thou/mm3 (1.8-7.7); Neutrophils % (Auto) 56 % (37-80); Nucleated Red Blood Cell % 0 /100 WBC (0); Platelet Count 227 Thou/mm3 (140-440); RDW Standard Deviation 40.9 fL (35.1-43.9); Red Blood Count 4.33 Miln/mm3 (4.50-5.90); White Blood Count 10.8 Thou/mm3 (3.8-10.6)
[2024-05-31 06:00] VITALS: BMI 30.1
[2024-05-31 06:34] LABS: Anion Gap 8 (7-16); BUN/Creatinine Ratio 23 Ratio (12-20); Blood Urea Nitrogen 27 mg/dL (9-23); Calcium 10.1 mg/dL (8.3-10.6); Carbon Dioxide 29.6 mMol/L (20.0-31.0); Chloride 100 mMol/L (98-107); Creatinine (Component) 1.2 mg/dL (0.6-1.3); Estimated Creatinine Clearance 56.2 mL/min (>60); Glucose 147 mg/dL (74-106); Osmolality,Calculated 283 (275-295); Potassium 4.5 mMol/L (3.4-5.1); Sodium 138 mMol/L (136-145); eGFR > 60 See Note
--- NOTE | 2024-05-31 06:45 | PD.RESPROC ---
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 My hands were washed immediately prior to the procedure. The patient was placed in the lateral decubitus position with help from the nursing staff. The area was cleansed and draped in usual sterile fashion using betadine scrub. Anesthesia was achieved with 1% lidocaine. A 20-gauge 3.5-inch spinal needle was placed in the L4-L5 lumbar interspace. [place] colored cerebral spinal fluid was obtained. CSF was collected into 4 tubes. These were sent for the usual tests, including 1 tube to be held for further analysis if needed. A sterile bandaid was placed over the puncture site. The patient had no immediate complications and tolerated the procedure well. Estimated blood loss was 1 ml.
[2024-05-31 06:57] VITALS: PULSE 68; RESP 16; O2SAT 94
[2024-05-31 08:00] VITALS: BP 134/83; PULSE 68; PULSE 75; RESP 16; TEMP 36.1; O2SAT 92
[2024-05-31 09:50] VITALS: BP 136/83; PULSE 75
[2024-05-31] MEDS: INSULIN GLARGINE (Lantus) 5 UNIT/0.05 ML (PER 5 UNITS) SC (09:50)
[2024-05-31] MEDS: LOSARTAN POTASSIUM 25 MG TABLET 50 MG PO (09:50)
[2024-05-31] MEDS: FLUCONAZOLE 100 MG TABLET 400 MG PO (09:50)
[2024-05-31] MEDS: cefuroxime axetiL 250 MG TABLET 500 MG PO (09:50)
--- NOTE | 2024-05-31 10:29 | PC.NURSE ---
Pt ambulated in room on room air, oxygen sat did not go below 92
[2024-05-31 12:00] VITALS: BP 137/89; PULSE 67; PULSE 74; RESP 17; TEMP 36.3; O2SAT 96
[2024-05-31] MEDS: INSULIN LISPRO (AdmeLOG) 1 UNIT/0.01 ML UNIT SC (12:25)
--- NOTE | 2024-05-31 16:38 | ESDS_ITS ---
<Statement entered by Emili Upton MD - 06/01/24 01:25> Patient was seen and examined by me personally. I have directly supervised and reviewed documentation by the team resident and agree with its findings with any exceptions or additional findings as below. Plan of care was discussed with the attending, Dr. Lugo. Patient seen this morning, endorsed feeling well, mild tenderness at the lumbar area where lumbar puncture was done but otherwise denies complaints or further hemoptysis. He is stable for discharge home, will follow up at his PCP clinic at [facility] for the results of the cocci CSF serology. Instructed to continue his fluconazole at the 400 mg qday dose. Patient was instructed to stop lisinopril-hydrochlorozthiazide and take only losartan 50 mg qday for hypertension, PCP to adjust medications as appropriate. Patient will need a referral to outpatient Pulmonology as well as follow up CT in 4-6 months for the cavitary lesion. Emili Upton, PGY-2 Planned Discharge Date 05/31/24 DS: Providers Provider Date of admission: 05/25/24 21:52 Primary care physician: KALIN Addison Admitting Provider: Bronson Feng MD Attending Provider on Admission: James Lugo MD Consults: 05/26/24 09:43 Consult to Infectious Diseases Routine Comment: Lung cavitary lesions, hemoptysis Consulting Provider: Elio Chen 05/29/24 16:02 Consult to Neurology / Tele-Neurology Routine Comment: Lumbar puncture rule out cocci meningitis Consulting Provider: Iam Rider Attending Provider on DC: Devorah Goldstein MD Discharging Provider: Devorah Goldstein MD DS: Diagnosis Problem List Completed Was Problem List Reviewed/Reconciled?: Yes Hospital Course Hospital Course Hospital course: The patient is a 68-year-old male with a previous medical history of depression, dementia, pulmonary cocci with cavitary lesion and 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 There was also concern for hematemesis that was ruled out. In the ED he was febrile, tachypneic, hemodynamically stable and was saturating on room air. Labs showed leukocytosis. He was admitted for hemoptysis workup. He was started on cefepime, vancomycin and fluconazole. Blood culture, urine culture, MRSA screen were negative. CT chest showed 38 over 28 mm partially cavitary lesion in the left upper lobe with concern for possible malignant and or infectious etiology. ID specialist Dr Chen was consulted and considering the history of dementia and possible meningeal cocci infection patient was suggested to perform a lumbar puncture to rule out chronic cocci meningitis. LP was done and the CSF was sent for cocci serology and VDRL. Patient's condition has improved, at the end of admission he was saturating well on room air. He was seen at the bedside and was medically clear for discharge home with instructions. 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 #History of cystic lesions of the liver - accidental finding #LISE most likely prerenal, resolving #Right leg DVT ruled out #History of diabetes mellitus History of hypertension #History of dementia #History of depression Discharge instructions: - Follow-up with your PCP in 1-2 weeks - Stop taking lisinopril, losartan-hydrochlorothiazide - Start taking losartan 50 mg every day - Continue taking fluconazole 400 mg every day - Follow up with [facility] outpatient - Follow with [facility] cocci serology - Repeat CT chest in 4-6 months - Follow-up with your cocci serology results at the [facility] ? Christina Damon Plan of care discussed with attending Dr. Lugo, PGY-[address] Upton. Devorah Goldstein MD, PGY 1. Time Spent with Patient Time attestation: Total time spent providing and/or coordinating discharge services: Exam Vital Signs Temp Pulse Resp BP Pulse Ox O2 Del Method O2 Flow Rate 97.4 F 67 17 137/89 H 96 Nasal Cannula 1 05/31/24 12:05/31/24 12:05/31/24 12:05/31/24 12:05/31/24 12:05/31/24 12:05/31/24 12:00 Narrative Exam Physical Exam General: Awake and in no acute distress. Conversational and non-toxic appearing. HEENT: Normocephalic, atraumatic, mucous membranes moist. Heart: Regular rate and rhythm, no murmurs. Lungs: Clear to auscultation with no wheezing or crackles. Abdomen: Soft, nondistended, nontender, positive bowel sounds. ?No guarding or rebound tenderness. Neurologic: Alert and oriented x3, no gross neurological deficit, and patient able to move all 4 extremities. Extremities: No edema. Skin: No rash or ecchymoses. Discharge Plan Plan Patient Disposition: HOME (Self Care) Patient condition on transfer: Stable Care Plan Goals: Discharge instructions: - Follow-up with your PCP in 1-2 weeks - Stop taking lisinopril, losartan-hydrochlorothiazide - Start taking losartan 50 mg every day - Continue taking fluconazole 400 mg every day - Follow up with [facility] outpatient - Follow with [facility] cocci serology - Repeat CT chest in 4-6 months - Follow-up with your cocci serology results at the [facility] ? Christina Damon Via [employer] translate: Instrucciones para el roe: - Seguimiento con ford m?dico de cabecera en 1-2 semanas - Deje de peg lisinopril, losartan-hidroclorotiazida - Comience a peg losartan 50 mg todos los d?as - Comience a peg fluconazol 400 mg todos los d?as - Seguimiento con neum?logo para pacientes ambulatorios - Seguimiento con serolog?a para cocos en [facility] - Repetir tomograf?a computarizada de t?rax en 4-6 meses - Seguimiento con los resultados de la serolog?a para cocos en el [facility] ? Christina Damon Prescriptions/Referrals Prescriptions/Med Rec: New fluconazole 200 mg tablet 400 mg PO QDAY MDD 400 mg 30 Days Qty: 60 0RF losartan 50 mg tablet 50 mg PO QDAY MDD 50 mg 30 Days Qty: 30 0RF Continued folic acid 1 mg Tablet 1 mg PO DAILY cholecalciferol (vitamin D3) [Vitamin D3] 125 mcg (5,000 unit) Tablet 125 mcg PO QDAY cyanocobalamin (vitamin B-12) 1,000 mcg Capsule 1,000 mcg PO QDAY mirtazapine 30 mg tablet 30 mg PO HS Patient Comments: take 1 tablet by mouth at bedtime bisacodyl 10 mg Suppository 10 mg AK QDAY PRN (Reason: Constipation) Qty: 12 0RF Janumet 50-1,000 mg tablet 1 tab PO BID Discontinued acetaminophen 325 mg/10.15 mL Solution 650 mg feeding tube Q6HR PRN (Reason: Pain Or Fever > 101) Qty: 1015 0RF loratadine 5 mg/5 mL Solution 10 mg feeding tube QDAY PRN (Reason: Allergy Symptoms) Qty: 120 0RF losartan-hydrochlorothiazide 50-12.5 mg tablet 1 tab PO DAILY fluconazole 200 mg tablet 200 mg PO Q24H Patient Comments: take 2 tab by mouth daily lisinopril 2.5 mg tablet 2.5 mg PO DAILY Referrals: Xu Macias, JUDICIAL LAW CLERK [Primary Care Provider] - Patient/Caregiver Discharge Instructions Discharge Activity: activity as tolerated Education Materials: Chest and Lung Problems, Lung Anatomy, Understanding Coccidioidomycosis Print Language: Montenegrin Stand Alone Forms: [employer] Award Info., Patient Portal Info Letter Discharge Order Discharge Orders: Discharge (Routine); Ordered 05/31/24 Ordered By: Devorah Goldstein Quality Discharge Quality Measures VTE prophylaxis MD Attestestation MD Attestation I have examined the patient, reviewed labs and imaging findings, discussed the case with the resident(s), and reviewed entered orders. I agree with the plan of care as outlined in this note, with these additional summaries/recommendations: Patient medically cleared for discharge. He was counseled extensively on the importance of following up at our [place] clinic for CSF cocci results. If CSF returns negative for cocci then he may decrease fluconazole dose to 200 mg once daily. Patient also counseled on the importance of monitoring his cavitary lung lesion outpatient. Lung lesion thought to be secondary to cocci. If repeat imaging down the road shows increase in size or if patient's hemoptysis returns he may benefit from biopsy of lung lesion. Patient medically cleared for discharge on 05/31/2024. All questions answered to satisfaction. Dr. Parish MD
[2024-06-04 06:46] LABS: VDRL, CSF Qual* NON-REACTIVE
== END 2024-05-31 13:40 | disposition home or self-care (01) | DRG 720 ==
LOC: SERX 18:22 → SERHOLD 22:23 → S2NX 05-26 06:16 → SERHOLD 05-26 08:31
PROVIDERS: Internal Medicine Infectious Disease; Physician Assistant; Student in an Organized Health Care Education/Training Program; Admitting Provider Student in an Organized Health Care Education/Training Program; Emergency Provider Emergency Medicine; PCP Nurse Practitioner; Visit Provider Student in an Organized Health Care Education/Training Program
DX: A41.9 Sepsis, unspecified organism (principal); K92.0 Hematemesis; R91.1 Solitary pulmonary nodule; F03.90 Unspecified dementia, unspecified severity, without behavioral disturbance, psychotic disturbance, mood disturbance, and anxiety; R04.2 Hemoptysis; N17.9 Acute kidney failure, unspecified; B38.0 Acute pulmonary coccidioidomycosis; G03.9 Meningitis, unspecified; E11.9 Type 2 diabetes mellitus without complications; E87.20 Acidosis, unspecified; I10 Essential (primary) hypertension; F32.A Depression, unspecified; Y95 Nosocomial condition; Z78.9 Other specified health status; Z79.899 Other long term (current) drug therapy; Z87.891 Personal history of nicotine dependence
CPT/HCPCS: 36415; 70450; 71046; 71275; 76700; 77002; 80048; 80053; 81001; 82140; 82378; 82607; 82746; 82945; 83036; 83605; 83615; 83690; 83735; 83880; 84100; 84145; 84157; 84443; 84484; 85025; 85610; 85730; 86171; 86304; 86480; 86592; 86780; 87015; 87040; 87070; 87081; 87086; 87116; 87205; 87206; 87400; 87811; 89051; 89220; 93005; 93971; 94762; 99285; A4649; J0692; J0696; J1815; J2470; J3370; J3371; J3475; J7040; J7050; Q9967; 94640; A9270